=== PATIENT | female | born 1940 | race Caucasian/White ===

== ENCOUNTER 2018-01-15 11:42 | Outpatient (CLI) | payer MEDICARE | END 2018-01-15 11:43 | disposition home or self-care (01) | LOC: BICMAMMO 11:42 | PROVIDERS: ATTEND Family Medicine | DX: Z12.31 Encounter for screening mammogram for malignant neoplasm of breast (principal) | CPT/HCPCS: 77063; 77067 ==

== ENCOUNTER 2018-04-15 10:33 | Observation (INO) | payer MEDICARE ==
[2018-04-15 11:17] LABS: #Eosinphils 0.3 thou/uL (0.0-0.7); #Lymphocytes 1.1 thou/uL (1.20-3.40); #Monocytes 1.1 thou/uL (0.11-0.59); #Neutrophils 6.5 thou/uL (1.40-6.50); %Basophils 0.5 % (0.0-1.0); %Lymphocytes 12.3 % (21.0-51.0); %Monocytes 12.3 % (0.0-10.0); %Neutrophils 71.9 % (42.0-75.0); Hemoglobin 14.2 g/dL (12.0-16.0); Mean Corpuscular HGB CONC 32.8 g/dL (32.0-36.0); Mean Corpuscular Hemoglobin 29.4 pg (27.0-31.0); Mean Corpuscular Volume 89.7 fL (78.0-98.0); Mean Platelet Volume 7.7 fL (7.4-10.4); Platelet Count 220 thou/uL (130-400); RBC Distribution Width 12.5 % (11.5-14.5); Red Blood Cell (RBC) Count 4.83 mill/uL (4.20-5.40); White Blood Cell (WBC) Count 9.1 thou/uL (4.8-10.8)
[2018-04-15 11:29] LABS: ALT (SGPT) 23 U/L (8-55); AST (SGOT) 25 U/L (5-34); Albumin 4.2 g/dL (3.4-4.8); Alkaline Phosphatase 101 U/L (40-150); Anion Gap 11 mmol/L (10-20); BUN (Urea Nitrogen) 18 mg/dL (9.8-20.1); Bilirubin, Total 0.9 mg/dL (0.2-1.2); Calc. Creatinine Clearance 0 mL/min (70-130); Calcium 9.6 mg/dL (7.8-10.44); Carbon Dioxide 28 mmol/L (23-31); Chloride 108 mmol/L (98-107); Estimated GFR-MDRD 62; Globulin 3.1 g/dL (2.4-3.5); Glucose 127 mg/dL (83-110); Potassium 3.9 mmol/L (3.5-5.1); Protein, Total 7.3 g/dL (6.0-8.3); Sodium 143 mmol/L (136-145)
[2018-04-15 11:35] LABS: CKMB 0.9 ng/mL (0-6.6); Troponin I 0.011 ng/mL (< 0.028)
--- NOTE | 2018-04-15 11:51 | RAD ---
CHEST ONE VIEW: HISTORY: A 78-year-old female with a history of palpitations and fluctuating blood pressure. COMPARISON: 02/08/2016 FINDINGS: Heart size is within normal limits. Lungs are clear. No confluent pneumonia, overt edema, or pleura l effusion. IMPRESSION: 1. No acute intrathoracic disease. 2. Atherosclerosis of the aorta. 3. Improvement in the appearance of the chest when compared to the prior older study. POS: [facility]
[2018-04-15 14:40] LABS: Troponin I Less than 0.010 ng/mL (< 0.028)
[2018-04-15 14:58] VITALS: BMI 27.0
[2018-04-15] MEDS ORDERED: Acetaminophen 325 MG TAB PO PRN (17:43)
[2018-04-15] MEDS ORDERED: diphenhydrAMINE 50 MG CAP PO PRN (17:47)
[2018-04-15] MEDS ORDERED: Nitroglycerin 0.4 MG TAB (25 Tab Bottle) SL PRN (17:47)
[2018-04-15 18:23] LABS: Troponin I Less than 0.010 ng/mL (< 0.028)
[2018-04-15] MEDS ORDERED: Amlodipine 10 MG TAB PO SCH (19:45)
[2018-04-15] MEDS: Atorvastatin Calcium 20 MG TAB PO SCH (20:14)
[2018-04-15] MEDS: Ezetimibe 10 MG TAB PO SCH (20:14)
[2018-04-15] MEDS: Ibuprofen 600 MG TAB PO SCH (20:16)
[2018-04-16] MEDS: Levothyroxine Sodium 100 MCG TAB PO SCH (06:13)
[2018-04-16] MEDS: Amlodipine 10 MG TAB PO SCH (08:04)
[2018-04-16] MEDS: Metamucil PACK PO SCH (08:09)
--- NOTE | 2018-04-16 08:20 | HP ---
CHIEF COMPLAINT: Palpitations with chest pressure. HISTORY OF PRESENT ILLNESS: This patient is a 78-year-old female, who has a history of some coronary artery disease with stents, who presented via the emergency department. The patient was reporting that she has had some sensation that things were simply not right within her chest for the last couple of weeks. She reports that she has had some palpitations as well as some pressure. She denies pain specifically, but states that something just felt off. She has had no radiation of this pressure type sensation. She can only rate it at rest at a 2/10. She does report that her blood pressure has been elevated associated with these symptoms, today it was as high as 160 systolic. REVIEW OF SYSTEMS: Notable for some constipation. Otherwise, a 10-system review is negative except for those things mentioned in the history of present illness. PAST MEDICAL HISTORY: Notable for coronary artery disease with 3 prior stents in 2008, osteoarthritis, hyperlipidemia, hypertension, hypothyroidism, depression. PAST SURGICAL HISTORY: Left knee replacement, foot surgery x2, cholecystectomy , D&C. FAMILY HISTORY: Father had leukemia. Mother had type 2 diabetes mellitus. Sister with arrhythmias and melanoma. SOCIAL HISTORY: The patient has a remote history of smoking, quit over 47 years ago. Has 1-2 alcoholic beverages per month. Denies drugs. She is . She is FULL CODE and her would be her surrogate decision maker. ALLERGIES: CODEINE and JANNET'S WORT. CURRENT MEDICATIONS: Aspirin, atorvastatin, amlodipine, vitamin D3, Zetia, Synthroid and omeprazole. The patient had been on isosorbide, but is not actually taking in a number of years. PHYSICAL EXAMINATION: VITAL SIGNS: Temperature is 97.5, pulse 58, respirations 20, O2 sat 95% on room air, blood pressure was 183/87. GENERAL APPEARANCE: Age appropriate female, in no distress. She is awake, alert, oriented, very pleasant, cooperative. HEENT: PERRL. No OP lesions. NECK: Supple and symmetric. There is a subtle right-sided bruit versus transmitted murmur. LUNGS: Clear to auscultation bilaterally with good chest wall expansion and air exchange. CARDIOVASCULAR: Heart has a 2/6 murmur at the right upper sternal border. ABDOMEN: Soft, nontender, nondistended, positive bowel sounds, no masses, no organomegaly. EXTREMITIES: Warm and dry with no cyanosis, clubbing or edema. LABORATORY DATA: White count 9.1, hemoglobin 14.3, platelets 220. Sodium 143, potassium 3.9, chloride 108, CO2 is 28, BUN is 18, creatinine is 0.9, glucose 127. Troponin 0.011 with the repeat 0.010. Chest x-ray is negative. EKG without ischemic changes. IMPRESSION AND PLAN: 1. Chest pain with palpitations and dyspnea on exertion. The patient has a history of coronary artery disease. She reports that she is followed by Dr. Bay and has had some workup done there within the last year or two. I do not have those records in our system. We will keep her in observation on telemetry and continue to monitor serial cardiac isoenzymes and consult Cardiology. 2. Possible carotid bruit. Again, the patient indicates that she has had a prior ultrasound. We will await to see if that is part of the Cardiology record. 3. Hypertension. Continue with her usual home medications and provide p.r.n. as necessary. 4. Hypothyroidism. Continue with her Synthroid. Check a TSH. MTDD
[2018-04-16 09:11] LABS: ALT (SGPT) 20 U/L (8-55); AST (SGOT) 24 U/L (5-34); Albumin 3.8 g/dL (3.4-4.8); Alkaline Phosphatase 96 U/L (40-150); Anion Gap 9 mmol/L (10-20); BUN (Urea Nitrogen) 12 mg/dL (9.8-20.1); Calc. Creatinine Clearance 69 mL/min (70-130); Calcium 9.2 mg/dL (7.8-10.44); Carbon Dioxide 24 mmol/L (23-31); Chloride 107 mmol/L (98-107); Estimated GFR-MDRD 71; Globulin 2.9 g/dL (2.4-3.5); Glucose 99 mg/dL (83-110); Protein, Total 6.7 g/dL (6.0-8.3); Sodium 136 mmol/L (136-145)
[2018-04-16 09:25] LABS: #Basophils 0.1 thou/uL (0.0-0.2); #Eosinphils 0.2 thou/uL (0.0-0.7); #Lymphocytes 1.3 thou/uL (1.20-3.40); #Neutrophils 5.3 thou/uL (1.40-6.50); %Basophils 0.8 % (0.0-1.0); %Eosinophils 2.9 % (0.0-10.0); %Lymphocytes 16.2 % (21.0-51.0); %Monocytes 13.1 % (0.0-10.0); Hemoglobin 13.6 g/dL (12.0-16.0); Mean Corpuscular HGB CONC 32.1 g/dL (32.0-36.0); Mean Corpuscular Hemoglobin 29.2 pg (27.0-31.0); Mean Platelet Volume 9.4 fL (7.4-10.4); Platelet Count 185 thou/uL (130-400); RBC Distribution Width 12.5 % (11.5-14.5); Red Blood Cell (RBC) Count 4.66 mill/uL (4.20-5.40)
[2018-04-16] MEDS ORDERED: ADENOSINE 60 MG/20 ML VIAL ONE (10:23)
[2018-04-16] MEDS: Ibuprofen 600 MG TAB PO SCH ×3 (11:00→21:24)
--- NOTE | 2018-04-16 14:17 | PDOC.PN ---
- Subjective Encounter Start Date: 04/16/18 Encounter Start Time: 10:00 -: f/u on admission for chest pain -: patient denies c/o today - Objective Resuscitation Status: Resuscitation Status FULL:Full Resuscitation Vital Signs & Weight: Vital Signs (12 hours) Temp Pulse Resp BP BP Pulse Ox 04/16/18 11:35 97.8 F 60 16 177/84 H 98 04/16/18 10:11 146/62 H 04/16/18 07:28 97.9 F 63 18 193/86 H 94 L 04/16/18 04:00 97.9 F 59 L 16 171/74 H 94 L Weight Weight 73.595 kg I&O: 04/15/18 04/16/18 04/17/18 06:59 06:59 06:59 Intake Total 600 200 Balance 600 200 Result Diagrams: 04/16/18 08:24 04/16/18 08:24 Phys Exam - Physical Examination HEENT: PERRLA, moist MMs Neck: no nodes, no JVD Respiratory: clear to auscultation bilateral Cardiovascular: RRR, no significant murmur Gastrointestinal: soft, non-tender Musculoskeletal: no edema, pulses present Neurological: non-focal, normal sensation Lymphatic: no nodes Psychiatric: normal affect, A&O x 3 Skin: no rash, normal turgor Dx/Plan (1) Chest pain Code(s): R07.9 - CHEST PAIN, UNSPECIFIED Status: Acute (2) CAD (coronary artery disease) Code(s): I25.10 - ATHSCL HEART DISEASE OF [place] CORONARY ARTERY W/O ANG PCTRS Status: Chronic (3) Dyslipidemia Code(s): E78.5 - HYPERLIPIDEMIA, UNSPECIFIED Status: Chronic (4) GERD (gastroesophageal reflux disease) Code(s): K21.9 - GASTRO-ESOPHAGEAL REFLUX DISEASE WITHOUT ESOPHAGITIS Status: Chronic - Plan -: Cardiology consult- Dr. Bay ordered stress test -: Echo pending -: Will monitor, repeats labs in am * .
[2018-04-16] MEDS ORDERED: Lisinopril 10 MG TAB PO SCH (17:15)
--- NOTE | 2018-04-16 17:42 | NM ---
NUCLEAR MEDICINE CARDIAC SPECT WITH EF AND WALL MOTION: 04/16/18 HISTORY: 78-year-old female with history of chest pain, history of coronary artery disease, prior stent, hyper tension, dyslipidemia. Adenosine Sestamibi study was performed. The patient was injected with 30 millicuries technetium 99m Sestamibi intravenously for stress images and with 9 millicuries technetium 99m Sestamibi intravenously for resting images. Multiple SPECT images in the short axis, vertical long axis and horizontal long axis demonstrates no scan evidence for infarct or ischemia. TID - 1.15. LHR - 0.28. EDV - 64 mL. EF - 74%. Myocardial perfusion wall motion: Wall motion is normal. IMPRESSION: Normal cardiac SPECT stress/rest with EF and wall motion. POS: [facility]
[2018-04-16] MEDS: Ezetimibe 10 MG TAB PO SCH (21:22)
[2018-04-16] MEDS: Atorvastatin Calcium 20 MG TAB PO SCH (21:22)
--- NOTE | 2018-04-16 22:14 | CON ---
DATE OF CONSULTATION: 04/15/2018 HISTORY OF PRESENT ILLNESS: Haylee Whitley is a 78-year-old white female that I follow intermittently since 06/2012. While she was living in [place] in 2008, she had a Promus drug-eluting stents placed in the right coronary artery 3.0 x 15 mm and Promus in the LAD 2.5 x 18 and 2.5 x 8. She apparently had dyspnea on exertion as her main symptom at that time. Now, she is uncertain if she had any chest discomfort. In 02/2012, she had a negative Cardiolite in [place] and also in 07/2013, she had negative Cardiolite in my office. In 2014, she was seen for routine followup and her heart rate was 48 per minute. She is on metoprolol 25 ER daily and that was discontinued. She continued to have heart rates in the 50s. Ejection fraction has been 60%-65% in the past. In 08/2015, she had a blood pressure of 191/65, pulse 72 which was regular. Ultimately, she came to the emergency room. At the time, she would complain of chest pain at rest. She was noted during that admission to have a 2.1 second pause. She underwent Cardiolite testing, which revealed no evidence of ischemia. During that admission, amlodipine was increased from 5 mg to 10 mg daily. She was sent home with a 30-day monitor, but did not have any further palpitations. She developed a rash with the electrodes and really did not wear the monitor much. Last time, I saw her in the office was in 10/2017. At that time, her blood pressure was 126/61; however, at home, she would have systolics of 150-160 per minute. She was placed on lisinopril 10 mg daily. That does not currently listed amongst her medications at home; however, she states she is still taking it. She now is admitted with increased blood pressure at home with systolics frequently in the 170-190 range. She also has noted exertional dyspnea as well as exertional chest pressure. She had the chest pressure of 15-20 minutes as well as she is unable to get her blood pressure down. She denies any significant palpitations, although the nurses state that was one of her main complaints. Since being in the hospital, she has had no significant pauses. She occasionally has PACs. PAST MEDICAL HISTORY: Coronary artery disease with stent placement as noted above, hyperlipidemia, hypertension, difficult to control hypothyroidism, depression, and osteoarthritis. OPERATIONS: Left knee replacement, foot surgery x2, cholecystectomy, and D&C. MEDICATIONS: At home include lisinopril 10 daily (not currently noted on her home medicine record), amlodipine 10 mg daily, aspirin 81 daily, atorvastatin 20 at bedtime, Zetia 10 mg at bedtime, ibuprofen 3 tablets t.i.d., isosorbide 60 mg q.a.m., levothyroxine 100 mcg daily, nitroglycerin p.r.n., multivitamin daily, Prilosec 20 q.a.m., Metamucil daily and sertraline 150 q.a.m. ALLERGIES: CODEINE and JANNET'S WORT. SOCIAL HISTORY: Smoked in the past. She occasionally drinks. She is . FAMILY HISTORY: No immediate family history of coronary artery disease. REVIEW OF SYSTEMS: Twelve-point review of systems otherwise unremarkable. PHYSICAL EXAMINATION: VITAL SIGNS: Blood pressure 174/75, pulse 76. HEENT: PERRL. NECK: Supple. CHEST: Clear. CARDIAC: S1 and S2 are normal, without any S3, S4. She has bilateral carotid artery bruits. ABDOMEN: Normal bowel sounds without tenderness or organomegaly. EXTREMITIES: Revealed no clubbing, cyanosis or edema. NEUROLOGIC: Grossly intact. LABORATORY DATA: EKG revealed sinus bradycardia with moderate increased voltage. CBC is unremarkable. Sodium 136, potassium 4.0, chloride 107, carbon dioxide 24, BUN 12, creatinine 0.79. Cardiac enzymes are unremarkable. Adenosine Cardiolite testing revealed no evidence of ischemia or fixed defect. Echocardiogram revealed ejection fraction 60%-65%, evidence for diastolic dysfunction, moderate mitral regurgitation, aortic valvular sclerosis, mild tricuspid regurgitation, and mild pulmonic regurgitation. IMPRESSION: 1. Exertional chest pressure and shortness of breath, probably related to poorly controlled hypertension. 2. No evidence of ischemia on Cardiolite at this time. 3. History of stent placement in the right coronary artery and left anterior descending in [place] in 08/2008. 4. Hypertension, poorly controlled, some of which may be due to her anxiety. 5. History of sinus bradycardia in the past with metoprolol having been discontinued. Also in 2015, she had a 2.1 second pause on no beta tanika. 6. Hypercholesterolemia. 7. Bilateral coronary artery bruits. 8. Hypothyroidism. 9. Depression. PLAN: Ms. Whitley at home was taking the lisinopril 10 mg daily, which is not amongst her current medications. I will give her dose 10 mg this afternoon and start 20 mg q.a.m. tomorrow. Carotid Doppler will be performed. Fasting lipid profile will be performed. Once her blood pressure is better controlled and she may be discharged. AILEEN
[2018-04-17] MEDS ORDERED: hydrALAZINE 20 MG/ML VIAL SLOW IVP SCH ×2 (03:45→05:30)
[2018-04-17 04:15] LABS: #Eosinphils 0.2 thou/uL (0.0-0.7); #Lymphocytes 1.3 thou/uL (1.20-3.40); #Monocytes 1.2 thou/uL (0.11-0.59); #Neutrophils 5.4 thou/uL (1.40-6.50); %Basophils 0.5 % (0.0-1.0); %Eosinophils 2.5 % (0.0-10.0); %Lymphocytes 16.1 % (21.0-51.0); %Monocytes 14.5 % (0.0-10.0); %Neutrophils 66.3 % (42.0-75.0); Hemoglobin 14.6 g/dL (12.0-16.0); Mean Corpuscular HGB CONC 32.9 g/dL (32.0-36.0); Mean Corpuscular Hemoglobin 29.6 pg (27.0-31.0); Mean Platelet Volume 7.8 fL (7.4-10.4); Platelet Count 205 thou/uL (130-400); RBC Distribution Width 12.3 % (11.5-14.5); Red Blood Cell (RBC) Count 4.95 mill/uL (4.20-5.40); White Blood Cell (WBC) Count 8.2 thou/uL (4.8-10.8)
[2018-04-17 04:36] LABS: ALT (SGPT) 21 U/L (8-55); AST (SGOT) 23 U/L (5-34); Alkaline Phosphatase 100 U/L (40-150); Anion Gap 12 mmol/L (10-20); BUN (Urea Nitrogen) 14 mg/dL (9.8-20.1); Calc. Creatinine Clearance 58 mL/min (70-130); Calcium 9.5 mg/dL (7.8-10.44); Carbon Dioxide 26 mmol/L (23-31); Cardiac Risk 3.9 (Less than 4.5); Chloride 107 mmol/L (98-107); Cholesterol 134 mg/dl (< 200 Desired); Estimated GFR-MDRD 58; Glucose 99 mg/dL (83-110); HDL Cholesterol 34 mg/dL (>60 Neg Risk); LDL Cholesterol, Calculated 83 mg/dL; Potassium 4.1 mmol/L (3.5-5.1); Sodium 141 mmol/L (136-145); Triglycerides 83 mg/dL (Less than 150)
[2018-04-17] MEDS: Levothyroxine Sodium 100 MCG TAB PO SCH (05:53)
--- NOTE | 2018-04-17 08:24 | ULT ---
CAROTID DOPPLER ULTRASOUND: Date: 04/17/18 HISTORY: Carotid bruit. COMPARISON: None. TECHNIQUE: Real-time De Oliveira scale, color Doppler, and spectral analysis of the extracranial carotid and vertebral arteries was performed. FINDINGS: Small volume plaque both proximal internal carotid arteries. Elevated peak systolic velocity in the r ight internal carotid artery and left internal carotid artery. Antegrade flow both vertebral arteries . Right ICA/CCA ratio is 1.38. Left ICA?CCA ratio is 1.76. IMPRESSION: 50-69% stenosis of both internal carotid arteries. CT angiogram may be beneficial if clinically warra nted. CODE T. POS: [facility]
[2018-04-17] MEDS: Amlodipine 10 MG TAB PO SCH (08:49)
[2018-04-17] MEDS: Ibuprofen 600 MG TAB PO SCH ×2 (08:49→15:43)
[2018-04-17] MEDS: Metamucil PACK PO SCH (08:50)
[2018-04-17] MEDS ORDERED: Lisinopril 20 MG TAB PO SCH (09:00)
[2018-04-17 15:58] VITALS: BP 175/79; TEMP 98.8
--- NOTE | 2018-04-18 03:33 | DIS ---
DATE OF ADMISSION: 04/15/2018 DATE OF DISCHARGE: 04/17/2018 CONSULTANTS: Dr. Bay. CODE STATUS: FULL. PROCEDURES: Patient had an echocardiogram with findings of an ejection fraction is visually estimated at 60%-65%. E/A flow reversal noted suggestive of diastolic dysfunction, moderate mitral regurgitation is present. Aortic valve is sclerotic. Mild tricuspid regurgitation, mild pulmonic regurgitation is present. Patient also had a chest x-ray showed no acute intrathoracic disease showed arthrosclerosis of the aorta improvement in the appearance of the chest when compared to a prior older study. Patient also had a stress test was given adenosine study. Patient had a normal cardiac stress rest with an EF and wall motion. Patient also had a carotid Doppler study, which showed impression of 50%-69% stenosis of both internal carotid arteries. DISCHARGE DIAGNOSES: 1. Chest pain, atypical. 2. Hypertension. 3. Carotid stenosis. 4. Anxiety. 5. History of bradycardia. 6. Paroxysmal supraventricular tachycardia. 7. Hypothyroidism. 8. Dyslipidemia. REVIEW OF SYSTEMS: Patient was examined this morning. Denies any complaints, did note that she had some constipation earlier this week, but reports she had a normal bowel movement this morning. Otherwise, a 10-system review negative. PHYSICAL EXAMINATION: VITAL SIGNS: Temperature 98.4, pulse 63, respirations 22, blood pressure 175/79 , 95% on room air. GENERAL APPEARANCE: Age appropriate for female, no distress. She is alert, awake, oriented, very pleasant, cooperative. HEENT: Pupils are equal and reactive to light. Normal conjunctivae. NECK: Supple. No JVD is noted. Subtle bilateral bruits to the carotid. LUNGS: Clear to auscultation bilaterally. Good chest wall expansion and air exchange. CARDIOVASCULAR: Heart with 2/6 murmur right upper sternal border. S1, S2. ABDOMEN: Soft, nontender, nondistended. EXTREMITIES: 5/5 strength to all four extremities. No edema noted to lower extremities. HOSPITAL COURSE: Ms. Whitley is a 78-year-old female with a history of some coronary artery disease and stents reports some vague chest pain, palpitations, and some pressure. Denies any specific pain, states primarily she felt off. She denied any radiation of this pressure-type sensation. Does report that her blood pressure has been elevated with in relation to these symptoms systolic in the 160s. She was admitted to the observation unit for further management. She had Doppler, echo, stress test ordered by Dr. Bay. He consulted. He recommends an outpatient visit with Cardiology EP doctors, as she had some SVT short bursts, while she was hospitalized. We also recommend yearly carotid Doppler studies based on the findings here. She denies any dizziness or any syncopal episodes. Her lisinopril was increased to 20 mg p.o. daily, first dose of that was this morning, blood pressure improved slightly. We will continue that lisinopril as an outpatient. Dr. Bay felt comfortable with her going home today with her increase in lisinopril, would like her to follow up with the EP doctors. Her chest pain was thought to be noncardiac at this time. Discharge plan was discussed with Dr. Ellis who agreed with plan. DISCHARGE MEDICATIONS: She will continue her home medications which include aspirin 81 mg p.o. daily, Lipitor 20 mg p.o. at night, calcium carbonate and vitamin D 600-125 once a week, Benadryl 50 mg p.o. b.i.d. p.r.n., Zetia 10 mg p.o. at bedtime, ibuprofen 600 mg p.o. t.i.d., isosorbide 60 mg p.o. q.a.m., levothyroxine 100 mcg p.o. q.a.m., multivitamin 1 tab p.o. daily, nitroglycerin 0.4 mg sublingual every 5 minutes as needed for anginal chest pain, Prilosec 20 mg p.o. q.a.m., Metamucil 0.4 grams p.o. daily, sertraline 150 mg p.o. q.a.m., Norvasc 10 mg p.o. daily, lisinopril increased to 20 mg p.o. daily. ALLERGIES: CODEINE and JANNET'S WORT. CONDITION: Stable. DISCHARGE INSTRUCTIONS: The patient will be discharged to home. REFERRAL: Should see Dr. Di Lam within 1 week. Recommend an appointment with Cardiology, EP physicians the first available appointment. Follow up with Dr. Bay in the next 2-3 weeks. [facility] HOSPITALGarcia
== END 2018-04-17 18:00 | disposition home or self-care (01) ==
LOC: ERS 10:33 → 2SW 13:33
PROVIDERS: ADMIT Internal Medicine; ATTEND Internal Medicine
DX: R07.89 Other chest pain (principal); I65.29 Occlusion and stenosis of unspecified carotid artery; F41.9 Anxiety disorder, unspecified; I47.1 Supraventricular tachycardia; R06.09 Other forms of dyspnea; I08.3 Combined rheumatic disorders of mitral, aortic and tricuspid valves; M19.90 Unspecified osteoarthritis, unspecified site; E78.5 Hyperlipidemia, unspecified; I10 Essential (primary) hypertension; E03.9 Hypothyroidism, unspecified; F32.9 Major depressive disorder, single episode, unspecified; K21.9 Gastro-esophageal reflux disease without esophagitis; I25.10 Atherosclerotic heart disease of native coronary artery without angina pectoris; Z87.891 Personal history of nicotine dependence; Z79.82 Long term (current) use of aspirin; Z79.899 Other long term (current) drug therapy; Z88.5 Allergy status to narcotic agent; Z88.8 Allergy status to other drugs, medicaments and biological substances; Z95.5 Presence of coronary angioplasty implant and graft
CPT/HCPCS: 71045; 78452; 80053 ×2; 80061; 82553; 84484 ×2; 85025 ×2; 93005; 93017; 93306; 93880; 94760; 96374; 96376; 99285; A9500; G0378 ×2; 36415; 84443; J0153; J0360; J7620

== ENCOUNTER 2018-10-04 11:29 | Emergency (ER) | payer MEDICARE ==
[2018-10-04] MEDS ORDERED: Nitroglycerin 2% Ointment 1 INCH/1 GM Packet ONE (11:58)
[2018-10-04 12:20] LABS: ALT (SGPT) 23 U/L (8-55); AST (SGOT) 29 U/L (5-34); Albumin 4.2 g/dL (3.4-4.8); Alkaline Phosphatase 116 U/L (40-150); Anion Gap 15 mmol/L (10-20); BUN (Urea Nitrogen) 13 mg/dL (9.8-20.1); Bilirubin, Total 0.9 mg/dL (0.2-1.2); CK (CPK) 49 U/L (29-168); Calc. Creatinine Clearance 0 mL/min (70-130); Calcium 9.8 mg/dL (7.8-10.44); Carbon Dioxide 23 mmol/L (23-31); Chloride 108 mmol/L (98-107); Estimated GFR-MDRD 66; Globulin 3.1 g/dL (2.4-3.5); Glucose 104 mg/dL (83-110); Lipase 22 U/L (8-78); Potassium 4.5 mmol/L (3.5-5.1); Protein, Total 7.3 g/dL (6.0-8.3); Sodium 141 mmol/L (136-145)
[2018-10-04 12:23] LABS: Band 1 % (5-11); Eosinophils 5 % (0-10); Hemoglobin 14.7 g/dL (12.0-16.0); Lymphocytes 14 % (21-51); MDiff Complete? YES; Mean Corpuscular HGB CONC 33.2 g/dL (32.0-36.0); Mean Corpuscular Volume 90.2 fL (78.0-98.0); Monocytes 10 % (0-10); Neutrophil 69 % (42-75); Platelet Count 183 thou/uL (130-400); RBC Distribution Width 12.5 % (11.5-14.5); Red Blood Cell (RBC) Count 4.91 mill/uL (4.20-5.40); White Blood Cell (WBC) Count 10.2 thou/uL (4.8-10.8)
--- NOTE | 2018-10-04 12:54 | RAD ---
PORTABLE CHEST: Date: 10/04/18 HISTORY: Chest pain. COMPARISON: 04/15/18. FINDINGS: Stranding in the lung bases consistent with mild atelectasis. Relatively poor inspiration. No evidenc e of vascular congestion or edema. No significant effusion. Heart size upper normal and stable. IMPRESSION: Evidence of bibasilar atelectasis. POS: [facility]
[2018-10-04] MEDS ORDERED: Acetaminophen 500 MG TAB ONE (12:56)
== END 2018-10-04 15:10 | disposition home or self-care (01) ==
LOC: ERS 11:29
DX: R07.89 Other chest pain (principal); I25.10 Atherosclerotic heart disease of native coronary artery without angina pectoris; E78.5 Hyperlipidemia, unspecified; I10 Essential (primary) hypertension; F32.9 Major depressive disorder, single episode, unspecified; Z79.899 Other long term (current) drug therapy; Z79.82 Long term (current) use of aspirin
CPT/HCPCS: 36415; 71045; 80053; 82550; 83690; 84484; 85025; 93005; 94760

== ENCOUNTER 2018-12-03 08:18 | Outpatient (CLI) | payer MEDICARE ==
--- NOTE | 2018-12-03 10:42 | MRI ---
EXAM: Right shoulder MRI without contrast: HISTORY: Right shoulder pain, care of right biceps muscle COMPARISON: None FINDINGS: Multiplanar, multisequence MRI examination of the shoulder is performed. A C joint:Arthrosis with minimal fluid and fat stranding in the subacromial and subdeltoid bursa. Supraspinatus tendon: High-grade partial-thickness undersurface insertional tear with minimal partial undersurface retraction back to the level of the rotator cable. Infraspinatus tendon: Intact. Biceps tendon: High-grade very irregular attenuating tear at the level of the upper bicipital groove with associated medial subluxation and disruption of the biceps tendon josette complex. Subscapularis tendon: Interstitial tears. Rotator cuff muscles: Within normal limits of signal and volume. Glenoid labrum: Abnormal signal associated with the superior labrum evidence for a degenerative type SLAP tear. No evidence for acute osteochondral defect or significant abnormal marrow signal. IMPRESSION: A C joint arthrosis. High-grade partial-thickness undersurface tear of the supraspinatus tendon at the insertion. High-grade partial-thickness tear of the biceps tendon with associated disruption of the biceps tendo n josette complex along with interstitial tears of the subscapularis tendon.
== END 2018-12-03 08:19 | disposition home or self-care (01) ==
LOC: BICMRI 08:18
PROVIDERS: ATTEND Orthopaedic Surgery Hand Surgery
DX: S46.211A Strain of muscle, fascia and tendon of other parts of biceps, right arm, initial encounter (principal); M19.011 Primary osteoarthritis, right shoulder

== ENCOUNTER 2018-12-09 10:09 | Outpatient (CLI) | payer MEDICARE ==
[2018-12-09 11:48] LABS: Anion Gap 13 mmol/L (10-20); BUN (Urea Nitrogen) 14 mg/dL (9.8-20.1); Calc. Creatinine Clearance 0 mL/min (70-130); Calcium 9.6 mg/dL (7.8-10.44); Carbon Dioxide 25 mmol/L (23-31); Chloride 110 mmol/L (98-107); Estimated GFR-MDRD 55; Glucose 88 mg/dL (83-110); Potassium 3.8 mmol/L (3.5-5.1); Sodium 144 mmol/L (136-145)
[2018-12-09 12:39] LABS: Band 2 % (5-11); Eosinophils 4 % (0-10); Hemoglobin 13.9 g/dL (12.0-16.0); Lymphocytes 15 % (21-51); MDiff Complete? YES; Mean Corpuscular HGB CONC 33.5 g/dL (32.0-36.0); Mean Corpuscular Hemoglobin 29.5 pg (27.0-31.0); Mean Corpuscular Volume 88.2 fL (78.0-98.0); Mean Platelet Volume 8.3 fL (7.4-10.4); Monocytes 10 % (0-10); Neutrophil 65 % (42-75); Platelet Count 176 thou/uL (130-400); RBC Distribution Width 12.5 % (11.5-14.5); RBC Morphology Normal; Reactive Lymphocytes 4 % (0-10); Red Blood Cell (RBC) Count 4.72 mill/uL (4.20-5.40); White Blood Cell (WBC) Count 8.2 thou/uL (4.8-10.8)
[2018-12-09 16:25] LABS: Bilirubin Negative (Negative); Blood, Urine 1+ (Negative); Clarity Clear (Clear); Glucose, Urine (Dipstick) Normal (Negative); Leukocyte Negative Leu/uL (Negative); Mucous/LPF Rare LPF (<2+); Nitrite Negative (Negative); Protein, Urine (Dipstick) 50 mg/dL (Neg-Trace); Squamous Epithelial 0-3 HPF (0-3); WBC/HPF 0-3 HPF (0-3)
[2018-12-09 16:29] LABS: Bacteria/HPF None Seen HPF (None Seen)
== END 2018-12-09 10:10 | disposition home or self-care (01) ==
LOC: LABBT 10:09
PROVIDERS: ATTEND Orthopaedic Surgery Hand Surgery
DX: Z01.818 Encounter for other preprocedural examination (principal); M19.042 Primary osteoarthritis, left hand
CPT/HCPCS: 80048; 81001; 85025; 93005; 93010

== ENCOUNTER → 2018-12-15 | Day surgery (SDC) | payer MEDICARE ==
[2018-12-09 10:44] VITALS: BMI 27.1
[~2018-12-15] MED LIST: Bacitracin Zinc Ointment 30 gm TUBE ONE; Betamet Acet/Betamet Na Ph 30 MG/5 ML VIAL ONE; Bupivacaine PF 0.5% 30 ML VIAL ONE; Dexamethasone 20 MG/5 ML VIAL ONE; Famotidine/PF 20 mg/2ml Vial ONE; Fentanyl 100 MCG/2 ML VIAL ONE; Ketorolac Tromethamine 30 MG/ML VIAL ONE; Lidocaine 1% PF 5 ML VIAL ONE; Metoclopramide HCl 10 MG/2 ML VIAL ONE; Ondansetron HCl/PF 4 MG/2 ML Vial IVP PRN; Ondansetron PF 4 MG/2 ML Vial ONE; PROPOFOL 200 MG/20 ML VIAL ONE; Promethazine HCl 25 MG/ML VIAL IM PRN; Promethazine HCl 25 MG/ML VIAL SLOW IVP PRN; Thrombin 5000 UNITS/5 ML VIAL ONE; ePHEDrine 50 MG/ML VIAL ONE
--- NOTE | 2018-12-15 20:50 | RAD ---
TWO VIEWS OF THE LEFT THUMB: 12/15/18 HISTORY: Left thumb ligament reconstruction. FINDINGS/IMPRESSION: Multiple limited intraoperative fluoroscopic views of the left thumb were submitted for interpretatio n. The patient appears to have had resection of the trapezium. A K-wire spans the first and second m etacarpals. POS: [facility]
--- NOTE | 2018-12-16 11:54 | OP ---
DATE OF PROCEDURE: 12/15/2018 PREOPERATIVE DIAGNOSIS: Severe left thumb carpometacarpal joint. FINDINGS: Severe osteoarthritis with obliteration of chondral surface, 80% of the trapezium surface, and 60% of the thumb metacarpal base of the joint. PROCEDURES PERFORMED: 1. Ligament replacement and tendon position, left thumb carpometacarpal joint. 2. Flexor carpi radialis tendon transfer with harvest, left side. 3. C-arm supervision. TOURNIQUET TIME: 120 minutes. ESTIMATED BLOOD LOSS: 25 mL. ANESTHESIA: General LMA technique augmented by 30% mL and 0.5% Marcaine block without epinephrine, 20 given before the procedure, divided 15 at the primary site and 5 at the harvest sites, and then the same ratio for the last 10 at the end of procedure when the wound was closed. DESCRIPTION OF PROCEDURE: After successful LMA technique, the limb was prepped and draped. The time-out done appropriately to include the fact she had beta tanika in less than last 24 hours, and she is on beta tanika. We then outlined incision incorporated the Marcaine, and then exsanguinated the limb with an Esmarch. The tourniquet was inflated to 250 mmHg pressure. We then used a curvilinear incision through skin and subcutaneous tissue, then found a branch of superficial radial nerve as well as the terminal branches of cutaneous and dissected free from the field. At the end of the interval between the abductor pollicis longus and extensor pollicis brevis, the patient had two large sleeves of abductor pollicis longus nerve. We then the nerve, found the joint capsule, opened the dorsal radial 1/2 and then tagged it with 2-0 Vicryl on each side. We then freed the muscle fascial belly before we could see the entire carpometacarpal joint and then began our dissection. We began radially until we protected the radial artery, dissected the entire radial 1/2 and then worked our way to free the proximal portion of the scaphotrapezial joint. Once this was done, we identified the flexor carpi radialis tendon and preserved it throughout. We freed up the medial capsule as well as the trapezial trapezoid joint. We preserved the posterior capsule and the trapezia what we found is percentage of arthritis listed above. We then had a large osteophyte ridge on the base of the radial and dorsal aspect of the thumb, and a smaller one on the web space portion of the thumb base which we resected with a rongeur. At this point, we then drilled with a 2.5 drill bit beginning about 12 mm proximal to the radial base of the thumb metacarpal at approximately a 40-degree angle. This entered the junction of the chondral surface and the metaphysis. Then, we progressed to expand it with a 3.5 drill bit, then multiple gouge and curette. Once we had done this, we then used a curved Angela tendon, passed through the pole of the tendon through the tunnel. We then secured the first metacarpal at approximately 45-degree web angle to the second metacarpal, maintaining a [place]ton line, in relationship between the base of the metacarpals and each other. The wire was in excellent position clinically and radiographically. We then cut it below the skin after bending it. The tendon was now secured two times to the periosteum and fascia just proximal through the entrance on the lateral side of the thumb metacarpal, sutured through the abductor pollicis longus after going deep to it x2 with 4-0 Prolene and then sutured to itself with a heavy Prolene 4-0. We then created the anchovy type weave with the two 3-0 pulleys and replaced these in the capsule earlier, and then tied this deep in the space created by the trapeziectomy. We then covered the trapeziectomy space with capsule that had been spared when we did trapeziectomy. Tourniquet was deflated, we then obtained hemostasis. We closed the fascia until the muscle belly back to the capsule with interrupted 2-0 Vicryl [id number] pattern. Subcutaneous closure was accomplished with 3-0 nylon as well as cutaneous closure, after obtaining hemostasis we closed the donor site for the tendon with the same 3-0 nylon interrupted mattress pattern. The patient had pink digits, hemostasis, and no evidence of problematic orientation, and the C-arm was taken from the field. A bulky dressing was applied under a thumb spica splint with the splint out to the level of the tip of the nail. Job ID: [id number]
== END ==
LOC: SDC 12:49
PROVIDERS: ATTEND Orthopaedic Surgery Hand Surgery
PROC: 0LX80ZZ Transfer Left Hand Tendon, Open Approach (ICD-10-PCS; principal; 2018-12-15)
PROC: 0RQT0ZZ Repair Left Carpometacarpal Joint, Open Approach (ICD-10-PCS; 2018-12-15)
DX: M18.0 Bilateral primary osteoarthritis of first carpometacarpal joints (principal); I25.10 Atherosclerotic heart disease of native coronary artery without angina pectoris; E78.5 Hyperlipidemia, unspecified; I10 Essential (primary) hypertension; E03.9 Hypothyroidism, unspecified; F32.9 Major depressive disorder, single episode, unspecified; Z87.891 Personal history of nicotine dependence; Z79.82 Long term (current) use of aspirin; Z79.899 Other long term (current) drug therapy; Z88.5 Allergy status to narcotic agent; Z88.7 Allergy status to serum and vaccine; Z91.09 Other allergy status, other than to drugs and biological substances; Z95.5 Presence of coronary angioplasty implant and graft; Z96.652 Presence of left artificial knee joint
CPT/HCPCS: 76000; J0131; J0690; J0702; J1885; J3010; S0020; S0028

== ENCOUNTER 2019-02-04 09:48 | Outpatient (CLI) | payer MEDICARE ==
--- NOTE | 2019-02-04 10:16 | MMO ---
Bilateral MAMMO Bilat Screen [facility]. CLINICAL HISTORY: Patient is 79 years old and is seen for screening. The patient has no family history of breast cancer. The patient has no personal history of cancer. VIEWS: The views performed were: bilateral craniocaudal with tomosynthesis and bilateral mediolateral oblique with tomosynthesis. FILMS COMPARED: The present examination has been compared to prior imaging studies performed at [facility] on 12/26/2015, 01/14/2017 and 01/15/2018, and at [facility] on 07/14/2014. MAMMOGRAM FINDINGS: The breasts are heterogeneously dense, which could obscure a lesion on mammography. There are stable benign appearing calcifications seen in both breasts. There are no suspicious masses, suspicious calcifications, or new areas of architectural distortion. IMPRESSION: THERE IS NO MAMMOGRAPHIC EVIDENCE OF MALIGNANCY. A ROUTINE FOLLOW-UP MAMMOGRAM IN 1 YEAR IS RECOMMENDED. THE RESULTS OF THIS EXAM WERE SENT TO THE PATIENT. ACR BI-RADS Category 2 - Benign finding MAMMOGRAPHY NOTE: 1. A negative mammogram report should not delay a biopsy if a dominant of clinically suspicious mass is present. 2. Approximately 10% to 15% of breast cancers are not detected by mammography. 3. Adenosis and dense breasts may obscure an underlying neoplasm. Reported by: NAHOMY FLYNN MD Electonically Signed: [id number]
== END 2019-02-04 09:49 | disposition home or self-care (01) ==
LOC: BICMAMMO 09:48
PROVIDERS: ATTEND Family Medicine
DX: Z12.31 Encounter for screening mammogram for malignant neoplasm of breast (principal)
CPT/HCPCS: 77063; 77067

== ENCOUNTER 2019-03-16 14:14 | Emergency (ER) | payer MEDICARE ==
--- NOTE | 2019-03-16 14:57 | RAD ---
PORTABLE CHEST ONE VIEW: 03/16/2019 2:24 p.m. HISTORY: Chest pain. COMPARISON: 10/04/2018 FINDINGS: The heart size is normal. The aorta is tortuous. The lungs are expanded without focal areas of consol idation, pneumothoraces or pleural effusions. IMPRESSION: No acute process. POS: OFF
[2019-03-16 15:05] LABS: Hemoglobin 12.9 g/dL (12.0-16.0); Mean Corpuscular HGB CONC 33.9 g/dL (32.0-36.0); Mean Corpuscular Hemoglobin 30.1 pg (27.0-31.0); Mean Corpuscular Volume 88.6 fL (78.0-98.0); Platelet Count 170 thou/uL (130-400); RBC Distribution Width 12.3 % (11.5-14.5); Red Blood Cell (RBC) Count 4.29 mill/uL (4.20-5.40); White Blood Cell (WBC) Count 11.4 thou/uL (4.8-10.8)
[2019-03-16 15:17] LABS: Band 1 % (5-11); Eosinophils 3 % (0-10); Lymphocytes 15 % (21-51); MDiff Complete? YES; Monocytes 12 % (0-10); Neutrophil 64 % (42-75); Platelet Morphology Comment Appears Adequate; RBC Morphology Normal; Reactive Lymphocytes 5 % (0-10)
[2019-03-16] MEDS ORDERED: Aspirin Chewable 81 MG TAB ONE ×2 (15:20→15:21)
[2019-03-16 15:26] LABS: ALT (SGPT) 23 U/L (8-55); AST (SGOT) 23 U/L (5-34); Albumin 3.9 g/dL (3.4-4.8); Alkaline Phosphatase 88 U/L (40-110); Anion Gap 12 mmol/L (10-20); BUN (Urea Nitrogen) 18 mg/dL (9.8-20.1); Bilirubin, Total 0.8 mg/dL (0.2-1.2); Calc. Creatinine Clearance 0 mL/min (70-130); Calcium 9.1 mg/dL (7.8-10.44); Carbon Dioxide 25 mmol/L (23-31); Chloride 108 mmol/L (98-107); Estimated GFR-MDRD 63; Globulin 2.5 g/dL (2.4-3.5); Glucose 98 mg/dL (83-110); Potassium 3.8 mmol/L (3.5-5.1); Protein, Total 6.4 g/dL (6.0-8.3); Sodium 141 mmol/L (136-145)
[2019-03-16 18:03] LABS: Troponin I 0.014 ng/mL (< 0.028)
== END 2019-03-16 18:33 | disposition home or self-care (01) ==
LOC: ERS 14:14
DX: R07.89 Other chest pain (principal); R00.1 Bradycardia, unspecified; I25.10 Atherosclerotic heart disease of native coronary artery without angina pectoris; E78.5 Hyperlipidemia, unspecified; E78.00 Pure hypercholesterolemia, unspecified; I10 Essential (primary) hypertension; F32.9 Major depressive disorder, single episode, unspecified; Z79.899 Other long term (current) drug therapy; Z79.82 Long term (current) use of aspirin
CPT/HCPCS: 36415; 71045; 80053; 83880; 84484; 85025; 93005

== ENCOUNTER 2019-03-20 10:07 | Inpatient (IN) | payer MEDICARE ==
[2019-03-20] MEDS ORDERED: Nitroglycerin 2% Ointment 1 INCH/1 GM Packet ONE (10:40)
--- NOTE | 2019-03-20 10:58 | RAD ---
Chest one view HISTORY: Hypertension. Bradycardia. COMPARISON: 03/16/2019. FINDINGS: Cardiac silhouette is magnified by projection. Patient is rotated rightward. Calcification in the aorta. Subtle parenchymal opacity projects over the lingula and partially obscures the left cardiac margin. No lobar consolidation or evidence of pneumothorax. IMPRESSION: Mild infiltrate/atelectasis of the lingula.
[2019-03-20 11:27] LABS: #Eosinphils 0.2 thou/uL (0.0-0.7); #Lymphocytes 1.4 thou/uL (1.20-3.40); #Monocytes 1.2 thou/uL (0.11-0.59); #Neutrophils 7.5 thou/uL (1.40-6.50); %Basophils 0.2 % (0.0-1.0); %Eosinophils 1.8 % (0.0-10.0); %Lymphocytes 13.6 % (21.0-51.0); %Monocytes 11.8 % (0.0-10.0); %Neutrophils 72.6 % (42.0-75.0); Hemoglobin 13.4 g/dL (12.0-16.0); Mean Corpuscular HGB CONC 33.7 g/dL (32.0-36.0); Mean Corpuscular Hemoglobin 30.1 pg (27.0-31.0); Mean Corpuscular Volume 89.3 fL (78.0-98.0); Platelet Count 159 thou/uL (130-400); RBC Distribution Width 12.4 % (11.5-14.5); Red Blood Cell (RBC) Count 4.44 mill/uL (4.20-5.40); White Blood Cell (WBC) Count 10.3 thou/uL (4.8-10.8)
[2019-03-20 11:47] LABS: ALT (SGPT) 27 U/L (8-55); AST (SGOT) 23 U/L (5-34); Albumin 3.8 g/dL (3.4-4.8); Alkaline Phosphatase 93 U/L (40-110); Anion Gap 11 mmol/L (10-20); BUN (Urea Nitrogen) 17 mg/dL (9.8-20.1); Bilirubin, Total 0.9 mg/dL (0.2-1.2); Calc. Creatinine Clearance 0 mL/min (70-130); Calcium 8.9 mg/dL (7.8-10.44); Carbon Dioxide 25 mmol/L (23-31); Chloride 110 mmol/L (98-107); Estimated GFR-MDRD 70; Globulin 2.3 g/dL (2.4-3.5); Glucose 159 mg/dL (83-110); Potassium 3.6 mmol/L (3.5-5.1); Protein, Total 6.1 g/dL (6.0-8.3); Sodium 142 mmol/L (136-145)
[2019-03-20 12:16] LABS: CKMB 0.8 ng/mL (0-6.6)
[2019-03-20 15:25] VITALS: BMI 24.3
[2019-03-20] MEDS ORDERED: Acetaminophen 325 MG TAB PO PRN (15:38)
[2019-03-20] MEDS ORDERED: Senokot S 8.6-50 MG TAB PO PRN (15:38)
[2019-03-20] MEDS ORDERED: MAG PO PRN (18:31)
[2019-03-20] MEDS ORDERED: [UNRECOGNIZED DRUG - OTHER] PO PRN (18:31)
[2019-03-20] MEDS ORDERED: B6 PO PRN (18:31)
[2019-03-20] MEDS ORDERED: MELATON PO PRN (18:31)
[2019-03-20 19:24] LABS: Troponin I 0.037 ng/mL (< 0.028)
[2019-03-20] MEDS: Atorvastatin Calcium 40 MG TAB PO SCH (19:53)
[2019-03-20] MEDS: Famotidine 20 MG TAB PO SCH (19:53)
[2019-03-20] MEDS: Ezetimibe 10 MG TAB PO SCH (19:53)
--- NOTE | 2019-03-20 20:08 | HP ---
PRIMARY CARE PHYSICIAN: Di Lam MD CHIEF COMPLAINT: Hypertension and bradycardia. HISTORY OF PRESENT ILLNESS: The patient is a very pleasant 79-year-old female, who came to the emergency room today complaining of hypertension and bradycardia since yesterday. Reports that her heart rate was in the 30s, yesterday 47 in the emergency room. Current blood pressure 178/77. The patient reports chest tightness and palpitations. Reports that her blood pressure has been very labile. Her metoprolol was recently increased from 12.5 mg to 25 mg 2 weeks ago and she had a followup appointment with Dr. Bay Friday. The patient admitted to the observation unit for further management of Cardiology consult. REVIEW OF SYSTEMS: Reports chest pain, palpitations, hypertension, bradycardia, reports that she gets short of breath more easily than she has in the past, dyspnea on exertion. Denies any fever, chills, abdominal pain, nausea, vomiting, or diarrhea. All systems reviewed and negative unless mentioned in HPI. PAST MEDICAL HISTORY: Coronary artery disease, has three stents; osteoarthritis; hyperlipidemia; hypertension; chronic constipation. PAST SURGICAL HISTORY: Left knee replacement, right foot surgery x2, left foot surgery x1, cholecystectomy, D and C, had some oral surgery. PSYCH HISTORY: Has a history of depression. SOCIAL HISTORY: Lives at home with her family. Drinks socially. Denies any drug use. No smoking history. ALLERGIES: PNEUMOCOCCAL VACCINE, CODEINE, AND JANNET'S WORT. HOME MEDICATIONS: 1. Norvasc 5 mg p.o. daily. 2. Aspirin 81 mg p.o. daily. 3. Lipitor 80 mg p.o. at bedtime. 4. Clonidine 0.1 mg q.6 hours. 5. Benadryl 50 mg p.o. b.i.d. p.r.n. 6. Zetia 10 mg p.o. at bedtime. 7. Ibuprofen 600 mg p.o. t.i.d. p.r.n. 8. Imdur 60 mg p.o. q.a.m. 9. Levothyroxine 88 mcg p.o. q.a.m. 10. Multivitamin with melatonin one capsule p.o. at bedtime p.r.n. 11. Lopressor 25 mg p.o. daily. 12. Nitroglycerin 0.4 mg sublingual q.5 minutes p.r.n. 13. Prilosec 20 mg p.o. q.a.m. 14. Sertraline 50 mg p.o. q.a.m. PHYSICAL EXAMINATION: VITAL SIGNS: Blood pressure 131/62, pulse is 45, respirations are 17, temperature is 98.3, and pO2 sats are 96% on room air. CONSTITUTIONAL: The patient appears nontoxic. She is in no apparent distress. She is alert and oriented to person, place, and time. HEENT: Head is atraumatic and normocephalic. Eyes; eyelids are normal to inspection. Pupils equal, round, and reactive to light. ENT, mouth exam is normal. Mucous membranes are moist. NECK: Normal range of motion. Trachea is midline. RESPIRATORY/CHEST: Breath sounds are clear. Chest movement is symmetrical. CARDIOVASCULAR: Bradycardic. Heart sounds are normal. ABDOMEN: Nontender. Bowel sounds are heard. BACK: Normal range of motion. No tenderness. EXTREMITIES: Upper extremities normal inspection. Normal range of motion. Radial pulses are equal bilaterally. Lower extremity, normal inspection. Normal range of motion. Pedal pulses are equal. There is no edema noted. NEURO: The patient is oriented to person, place, and time. Speech is normal. SKIN: Warm, dry, normal in color. PSYCH: Normal affect. EKG, sinus ghazal, beats per minute 46. ST segments are normal. T-waves normal. [place] is normal. Left ventricular hypertrophy. PLAN AND ASSESSMENT: 1. Bradycardia. We will hold beta blockers for now and ask Cardiology to consult. Place the patient on monitor. Trend troponins. 2. Hypertension. See #1. 3. Hyperlipidemia. Restart home medications. 4. Hypothyroidism. We will restart home medications. 5. History of depression. We will start her sertraline. 6. Deep venous thrombosis and gastrointestinal prophylaxis started. Case was discussed with Dr. Marte, who agrees with plan. Hospital course is dependent on clinical findings. Job ID: [id number]
[2019-03-20 22:51] LABS: Troponin I 0.036 ng/mL (< 0.028)
[2019-03-21] MEDS ORDERED: hydrALAZINE 20 MG/ML VIAL SLOW IVP SCH (04:00)
[2019-03-21] MEDS: Levothyroxine Sodium 88 MCG TAB PO SCH (04:31)
[2019-03-21 05:52] LABS: #Basophils 0.1 thou/uL (0.0-0.2); #Eosinphils 0.2 thou/uL (0.0-0.7); #Lymphocytes 1.9 thou/uL (1.20-3.40); #Monocytes 1.6 thou/uL (0.11-0.59); #Neutrophils 7.6 thou/uL (1.40-6.50); %Basophils 0.8 % (0.0-1.0); %Eosinophils 1.4 % (0.0-10.0); %Lymphocytes 16.8 % (21.0-51.0); %Monocytes 14.2 % (0.0-10.0); %Neutrophils 66.8 % (42.0-75.0); Hemoglobin 15.5 g/dL (12.0-16.0); Mean Corpuscular Hemoglobin 30.1 pg (27.0-31.0); Mean Corpuscular Volume 88.6 fL (78.0-98.0); Mean Platelet Volume 8.2 fL (7.4-10.4); Platelet Count 187 thou/uL (130-400); RBC Distribution Width 12.5 % (11.5-14.5); Red Blood Cell (RBC) Count 5.14 mill/uL (4.20-5.40); White Blood Cell (WBC) Count 11.4 thou/uL (4.8-10.8)
[2019-03-21 06:21] LABS: Anion Gap 12 mmol/L (10-20); BUN (Urea Nitrogen) 14 mg/dL (9.8-20.1); Calc. Creatinine Clearance 58 mL/min (70-130); Calcium 10.1 mg/dL (7.8-10.44); Carbon Dioxide 26 mmol/L (23-31); Chloride 107 mmol/L (98-107); Estimated GFR-MDRD 66; Glucose 93 mg/dL (83-110); Potassium 3.8 mmol/L (3.5-5.1); Sodium 141 mmol/L (136-145)
[2019-03-21] MEDS: Famotidine 20 MG TAB PO SCH ×2 (10:45→20:21)
[2019-03-21] MEDS: Aspirin Chewable 81 MG TAB PO SCH (10:45)
[2019-03-21] MEDS: Enoxaparin Sodium 40 MG/0.4 ML SYRINGE SC SCH (10:46)
[2019-03-21] MEDS ORDERED: Amlodipine 10 MG TAB PO SCH (12:45)
[2019-03-21] MEDS ORDERED: Nitroglycerin 2% Ointment 1 INCH/1 GM Packet TOP STA (12:48)
--- NOTE | 2019-03-21 13:48 | CON ---
DATE OF CONSULTATION: PRIMARY TELEPHONE EXCHANGE OPERATOR: Carmine Bay MD REASON FOR CONSULTATION: Bradycardia, chest pressure, coronary artery disease. HISTORY OF PRESENT ILLNESS: Ms. Whitley is a very pleasant 79-year-old patient of Dr. Carmine Bay. She has had admissions in the past for chest pressure associated with hypertension. The patient recently was seen in the office and her medicine was adjusted, but she is continuing to have hypertension and also some low heart rate. She noticed her heart rate were in the mid 40s. She came to the hospital yesterday complaining of tightness in her chest. Heart rate was in the mid 40s and also hypertensive. The patient states overnight she felt like she had trouble getting a good deep breath and also the blood pressure is still elevated and the heart rate is still in the mid 40s. MEDICATIONS: Prior to admission, 1. Atorvastatin 80 mg a day. 2. Isosorbide 60 mg a day. 3. Zetia 10 mg a day. 4. Metoprolol 25 mg a day. This is tartrate, but I think she may have been taking succinate at home. 5. Amlodipine 5 mg a day. 6. Aspirin 81 mg a day. 7. Levothyroxine. ALLERGIES: TO PNEUMOCOCCAL VACCINE AND CODEINE. REVIEW OF SYSTEMS: CONSTITUTIONAL: Positive for some weakness with heart rate gets low. VISION: No changes. HEARING: No changes. PULMONARY: No cough or wheezing. GASTROINTESTINAL: No nausea, vomiting, or diarrhea. SKIN: No rashes. NEUROLOGIC: No unilateral weakness or numbness. PSYCHIATRIC: No unusual depression or anxiety. HEMATOLOGIC: No unusual bruising. GENITOURINARY: No burning with urination. Reviewing the records, the patient has had previous stent implantation done in [place] many years ago. The patient has undergone stress testing in the past, also unremarkable. PHYSICAL EXAMINATION: VITAL SIGNS: The blood pressure is 150/70, pulse 44. Earlier this morning, the blood pressure is 180/70. HEENT: Eyes, sclerae nonicteric. Mouth, mucous membranes moist. NECK: Supple. No lymphadenopathy. LUNGS: Clear. No wheezing. CARDIAC: Normal S1, normal S2. There is a soft 2/6 mid systolic murmur. No diastolic murmur. No S3. ABDOMEN: Soft, nontender. EXTREMITIES: Warm and dry. No clubbing or cyanosis. No edema. Peripheral pulses are present. PERTINENT LABORATORY DATA: Troponin of 0.042. IMAGING STUDIES: The patient has had a Cardiolite stress testing done in April 2008, which did not show ischemia. The EKGs here have shown sinus bradycardia. The patient has had stents placed in 2008. In the LAD, there are 2.5 x 18, 2.5 x 8 and the right coronary 3.0 x 15 PROMUS stents. In the past, it is thought that this hypertension is precipitating the angina. ASSESSMENT: 1. Coronary artery disease. 2. Previous stent implantation. 3. Hypertension. 4. Bradycardia. PLAN: 1. Beta-tanika has been discontinued. 2. Increase amlodipine. 3. Increase nitrates for now. 4. Dr. Bay to return tomorrow. The patient still has chest pressure intermittently at rest, should not be discharged home. This may represent angina at rest, unstable angina. Job ID: [id number]
--- NOTE | 2019-03-21 17:47 | PRG ---
DATE OF SERVICE: 03/21/2019 SUBJECTIVE: The patient is seen and examined at the bedside. She is feeling significantly better. Her chest pressure significantly improved. She does not need any oxygen any more. She was able to walk in the hallway today. Her appetite is fair. OBJECTIVE: VITAL SIGNS: Blood pressure is 147/63, pulse is 49, temperature is 97.9, respirations 16, O2 saturation is 93% on room air. HEENT: Head is atraumatic and normocephalic. Eyes are PERRLA. Sclerae are nonicteric. Oral mucosa is moist. NECK: Supple. LUNGS: Clear. HEART: S1, S2. Martínez. No S3. No S4. ABDOMEN: Soft, nontender, and nondistended. EXTREMITIES: No clubbing, cyanosis, or edema. NEUROLOGIC: She is alert and oriented x4. LABORATORY DATA: Labs showed a normal CBC, mildly elevated white count of 11.4. Normal chemistry. Troponins are 0.037 and 0.036. IMPRESSION: 1. Chest pain, improved. The patient was seen by gas engineer, Dr. Bautista, who recommends to discontinue beta tanika and increase amlodipine dose and increase nitrates. 2. Coronary artery disease, status post stenting. 3. Hypertension. 4. Bradycardia. 5. Hypothyroidism. 6. History of depression. She should be able to go home in the next 24 hours. Job ID: [id number]
[2019-03-21] MEDS: Atorvastatin Calcium 40 MG TAB PO SCH (20:20)
[2019-03-21] MEDS: Ezetimibe 10 MG TAB PO SCH (20:20)
[2019-03-22] MEDS: Levothyroxine Sodium 88 MCG TAB PO SCH (06:31)
[2019-03-22] MEDS: Aspirin Chewable 81 MG TAB PO SCH (07:52)
[2019-03-22] MEDS: Amlodipine 10 MG TAB PO SCH (07:52)
[2019-03-22] MEDS: Enoxaparin Sodium 40 MG/0.4 ML SYRINGE SC SCH (07:53)
[2019-03-22] MEDS: Famotidine 20 MG TAB PO SCH ×2 (07:53→20:22)
[2019-03-22] MEDS ORDERED: Losartan 25 MG TAB PO SCH (10:30)
[2019-03-22] MEDS ORDERED: Lisinopril 20 MG TAB PO SCH (11:00)
--- NOTE | 2019-03-22 12:22 | PRG ---
DATE OF SERVICE: 03/22/2019 SUBJECTIVE: The patient is seen and examined at the bedside. She is feeling significantly better. She does not have any chest pain anymore. Her blood pressure was elevated this morning. OBJECTIVE: VITAL SIGNS: Blood pressure is 187/78, pulse is 54, temperature is 97.5, respiratory rate is 16, O2 saturation is 96% on room air. HEENT: Head is atraumatic and normocephalic. Eyes are PERRLA. Sclerae are nonicteric. Oral mucosa is moist. NECK: Supple. LUNGS: Clear. HEART: S1 and S2 normal. No S3. No S4. ABDOMEN: Soft, nontender. EXTREMITIES: No clubbing, cyanosis, or edema. NEUROLOGIC: She is alert and oriented x4. There are no any motor or sensory deficits. LABORATORY DATA: None today. IMPRESSION: 1. Chest pain, resolved. 2. Coronary artery disease, status post stenting. 3. Hypertensive urgency. 4. Bradycardia. 5. Hypothyroidism. 6. History of depression. DISCUSSION: The patient's blood pressure is treated with lisinopril 20 mg twice a day by Dr. Bay, who took over a cardiology service care. We will continue her amlodipine 10 mg once a day. We will continue her beta-tanika holding since she is still bradycardic and we will continue her thyroid replacement. We will continue DVT prophylaxis, so the patient is not going home today because of her blood pressure issue. She will stay additional 24 hours to get the blood pressure under better control. Job ID: [id number]
[2019-03-22] MEDS: Atorvastatin Calcium 40 MG TAB PO SCH (20:21)
[2019-03-22] MEDS: Lisinopril 20 MG TAB PO SCH (20:22)
[2019-03-22] MEDS: Ezetimibe 10 MG TAB PO SCH (20:22)
[2019-03-23] MEDS ORDERED: hydrALAZINE 20 MG/ML VIAL SLOW IVP PRN (01:12)
[2019-03-23] MEDS: Levothyroxine Sodium 88 MCG TAB PO SCH (06:35)
[2019-03-23] MEDS: Amlodipine 10 MG TAB PO SCH (08:05)
--- NOTE | 2019-03-23 11:10 | NM ---
Radionucleotide stress and rest myocardial perfusion scan with CT attenuation correction and SPECT im aging HISTORY: Chest pain. FINDINGS: Lexiscan protocol. There is homogeneous uptake of radiotracer throughout the left ventricul ar myocardium. No focal perfusion defect or reversibility. QGS analysis of gated SPECT images shows no focal wall motion abnormalities. Ejection fraction calcul ated at 70%. IMPRESSION: Normal myocardial perfusion scan. Normal LVEF.
--- NOTE | 2019-03-23 11:52 | PDOC.HOSPP ---
- Subjective Encounter Date: 03/23/19 Encounter Time: 09:00 Subjective: Patient seen and examined. No new complaints. No overnight events - Objective Vital Signs & Weight: Vital Signs (12 hours) Temp Pulse Resp BP Pulse Ox 03/23/19 11:22 97.4 F L 61 18 188/81 H 96 03/23/19 07:56 97.8 F 64 16 175/84 H 96 03/23/19 06:35 74 134/67 03/23/19 03:36 97.7 F 62 18 184/75 H 95 03/23/19 02:01 55 L 03/23/19 02:00 201/83 H Weight Weight 146 lb 3.2 oz I&O: 03/22/19 03/23/19 03/24/19 06:59 06:59 06:59 Intake Total 1300 50 Output Total 950 Balance 350 50 Result Diagrams: 03/21/19 05:23 03/21/19 05:23 EKG Reviewed by me: Yes Hospitalist ROS - Review of Systems ENT: denies: ear pain, ear discharge, nose pain, nose discharge, nose congestion , mouth pain, mouth swelling, throat pain, throat swelling, other Respiratory: denies: cough, dry, shortness of breath, hemoptysis, SOB with excertion, pleuritic pain, sputum, wheezing, other Cardiovascular: denies: chest pain, palpitations, orthopnea, paroxysmal noc. dyspnea, edema, light headedness, other Gastrointestinal: denies: nausea, vomiting, abdominal pain, diarrhea, constipation, melena, hematochezia, other Genitourinary: denies: dysuria, frequency, incontinence, hematuria, retention, other Musculoskeletal: denies: neck pain, shoulder pain, arm pain, back pain, hand pain, leg pain, foot pain, other Skin: denies: rash, lesions, guillaume, bruising, other - Medication Medications: Active Medications Generic Name Dose Route Start Last Admin Trade Name Freq PRN Reason Stop Dose Admin Acetaminophen 650 mg 03/20/19 15:38 03/21/19 04:31 Tylenol PO 650 mg Q4H PRN Administration Headache/Fever/Mild Pain (1-3) Amlodipine Besylate 10 mg 03/22/19 09:00 03/23/19 08:05 Norvasc PO 10 mg DAILY MAEVE Administration Aspirin 81 mg 03/21/19 09:00 03/22/19 07:52 Aspirin Chewable PO 81 mg DAILY MAEVE Administration Atorvastatin Calcium 80 mg 03/20/19 21:00 03/22/19 20:21 Lipitor PO 80 mg HS MAEVE Administration Ezetimibe 10 mg 03/20/19 21:00 03/22/19 20:22 Zetia PO 10 mg HS MAEVE Administration Enoxaparin Sodium 40 mg 03/21/19 09:00 03/22/19 07:53 Lovenox SC 40 mg 0900 MAEVE Administration Famotidine 20 mg 03/20/19 21:00 03/22/19 20:22 Pepcid PO 20 mg BID MAEVE Administration Hydralazine HCl 10 mg 03/23/19 01:12 03/23/19 02:01 Apresoline SLOW IVP 10 mg Q4H PRN Administration BP > 180/90 Isosorbide Mononitrate 60 mg 03/21/19 09:00 03/22/19 07:53 Imdur PO 60 mg QAM MAEVE Administration Levothyroxine Sodium 88 mcg 03/21/19 06:00 03/23/19 06:35 Synthroid PO 88 mcg 0600 [facility] Administration Lisinopril 20 mg 03/22/19 21:00 03/22/19 20:22 Zestril PO 20 mg BID MAEVE Administration Sertraline HCl 50 mg 03/21/19 09:00 03/22/19 07:52 Zoloft PO 50 mg QAM MAEVE Administration - Exam General Appearance: NAD, awake alert Eye: PERRL, anicteric sclera ENT: normocephalic atraumatic, no oropharyngeal lesions Neck: supple, symmetric, no JVD, no thyromegaly Heart: RRR, no murmur, no gallops, no rubs, normal peripheral pulses Respiratory: CTAB, no wheezes, no rales, no ronchi Gastrointestinal: soft, non-tender, non-distended, normal bowel sounds Extremities: no cyanosis, no clubbing, no edema Skin: normal turgor, no lesions Neurological: cranial nerve grossly intact, normal sensation to touch Musculoskeletal: normal tone, normal strength Psychiatric: normal affect, normal behavior Hosp A/P (1) Chest pain Code(s): R07.9 - CHEST PAIN, UNSPECIFIED Status: Acute (2) Anxiety and depression Code(s): F41.9 - ANXIETY DISORDER, UNSPECIFIED; F32.9 - MAJOR DEPRESSIVE DISORDER, SINGLE EPISODE, UNSPECIFIED Status: Chronic (3) CAD (coronary artery disease) Code(s): I25.10 - ATHSCL HEART DISEASE OF [place] CORONARY ARTERY W/O ANG PCTRS Status: Chronic (4) Dyslipidemia Code(s): E78.5 - HYPERLIPIDEMIA, UNSPECIFIED Status: Chronic (5) GERD (gastroesophageal reflux disease) Code(s): K21.9 - GASTRO-ESOPHAGEAL REFLUX DISEASE WITHOUT ESOPHAGITIS Status: Chronic (6) HTN (hypertension) Code(s): I10 - ESSENTIAL (PRIMARY) HYPERTENSION Status: Chronic (7) Hypothyroid Code(s): E03.9 - HYPOTHYROIDISM, UNSPECIFIED Status: Chronic - Plan old records reviewed/req medication reviewed as above symptomatic treatment will DC if cardiology ok stress test negative
[2019-03-23] MEDS: Enoxaparin Sodium 40 MG/0.4 ML SYRINGE SC SCH (12:09)
[2019-03-23] MEDS: Famotidine 20 MG TAB PO SCH (12:09)
[2019-03-23] MEDS: Aspirin Chewable 81 MG TAB PO SCH (12:10)
[2019-03-23] MEDS: Lisinopril 20 MG TAB PO SCH (12:11)
--- NOTE | 2019-03-23 13:20 | DIS ---
DATE OF ADMISSION: 03/20/2019 DATE OF DISCHARGE: 03/23/2019 PRIMARY CARE PHYSICIAN: Dr. Di Lam. DISCHARGE DISPOSITION: Home. PRIMARY DISCHARGE DIAGNOSES: Chest pain, ruled out acute coronary syndrome and bradycardia due to medication. SECONDARY DISCHARGE DIAGNOSES: Hypothyroidism, hypertension, gastroesophageal reflux disease, osteoarthritis, history of carotid stenosis, coronary artery disease, anxiety and depression. PRIMARY PROCEDURE/OPERATION: None. RADIOLOGICAL INVESTIGATION: Chest x-ray normal. Echocardiography showed EF 60% to 65%, diastolic dysfunction. Stress test negative. SIGNIFICANT LABORATORY DATA: WBC 11.4, hemoglobin 15.5, platelet 187. Sodium 141, creatinine 0.83. Troponin 0.036. BNP 141.2. DISCHARGE MEDICATIONS: 1. Nitroglycerin 0.4 mg sublingual p.r.n. for chest pain. 2. Aspirin 81 mg daily. 3. Lipitor 80 mg p.o. at bedtime. 4. Clonidine 0.1 mg q.6 hourly p.r.n. 5. Benadryl 50 mg b.i.d. p.r.n. 6. Zetia 10 mg p.o. at bedtime. 7. Imdur 60 mg daily. 8. Synthroid 88 mcg p.o. daily. 9. Omeprazole 20 mg daily. 10. Zoloft 50 mg daily. 11. Amlodipine 10 mg p.o. daily. 12. Lisinopril 20 mg p.o. b.i.d. CONTRAINDICATION: None. CODE STATUS: Full code. INPATIENT FILTRATION OPERATOR: Dr. Bautista and Cardiology group was following while in hospital. TEST RESULT PENDING ON DISCHARGE: None. ALLERGIES: PNEUMOCOCCAL VACCINE, CODEINE, AND JANNET'S WORT. DISCHARGE PLAN: Posthospital, the patient will follow up with primary care physician in 1 week. HOSPITAL COURSE: A 79-year-old female, who was admitted by Naz De La O. Please see her H and P for further details. The patient was admitted for uncontrolled hypertension and bradycardia. The patient was taking beta tanika, and that is why beta tanika was discontinued during this admission. The patient had elevated troponin, which was indeterminate range. Cardiology was following while in hospital and Cardiology ordered a stress test that came back negative. Blood pressure medication was increased, amlodipine to 10 mg daily and lisinopril was added. Beta tanika was discontinued because of bradycardia. The patient is currently asymptomatic. If Cardiology is okay, then we will consider discharging her home later on today. The patient is seen and examined at bedside today. Please see my progress note from today for further detail. Job ID: [id number]
[2019-03-23 15:28] VITALS: BP 118/59; TEMP 97.7
== END 2019-03-23 17:15 | disposition home or self-care (01) | DRG 305 ==
LOC: ERS 10:07 → 2SW 14:20 → OBSVTOIN 14:20 → 2NO 03-23 00:19
PROVIDERS: ADMIT Internal Medicine; ATTEND Internal Medicine
DX: I16.0 Hypertensive urgency (principal); R00.1 Bradycardia, unspecified; I10 Essential (primary) hypertension; I25.10 Atherosclerotic heart disease of native coronary artery without angina pectoris; M19.90 Unspecified osteoarthritis, unspecified site; E78.5 Hyperlipidemia, unspecified; E78.00 Pure hypercholesterolemia, unspecified; K59.09 Other constipation; F32.9 Major depressive disorder, single episode, unspecified; E03.9 Hypothyroidism, unspecified; F41.9 Anxiety disorder, unspecified; K21.9 Gastro-esophageal reflux disease without esophagitis; T44.7X5A Adverse effect of beta-adrenoreceptor antagonists, initial encounter; Z96.652 Presence of left artificial knee joint; Z88.8 Allergy status to other drugs, medicaments and biological substances; Z90.49 Acquired absence of other specified parts of digestive tract; Z95.5 Presence of coronary angioplasty implant and graft; Z88.5 Allergy status to narcotic agent; Z88.7 Allergy status to serum and vaccine; Z79.899 Other long term (current) drug therapy; Z79.82 Long term (current) use of aspirin; Z79.890 Hormone replacement therapy
CPT/HCPCS: 36415; 71045; 78452; 80048; 80053; 82553; 83880; 84484; 85025; 93005; 93017; 93306; A9500; J0360; J1650

== ENCOUNTER 2019-05-31 15:07 | Outpatient (CLI) | payer MEDICARE ==
--- NOTE | 2019-05-31 16:41 | CT ---
CT RIGHT WRIST WITHOUT CONTRAST: History: Pain. Fall. Evaluate for healing. S52.514A nondisplaced fracture of right radial styloid process, initial encounter for closed fracture . Comparison: None. FINDINGS: Mild positive ulnar variance. Moderate degenerative change in the distal radial ulnar joint. A small ossification along the dorsal distal radial ulnar ligament either an ossicle or from prior injury. No evidence for an acute fracture of the distal ulna nor the distal radius. Moderate degenerative disease of the scaphotrapezium trapezoidal joints with narrowing sclerosis and cystic formation. There is also moderate degenerative disease of the thumb carpal metacarpal joint. Hook of the hamate and tubercle of the trapezium are intact. IMPRESSION: 1. No evidence for an acute nor healing radial styloid fracture. 2. Ossicle dorsal aspect of the distal radial either congenital accessory ossicle vs ossification of the dorsal distal radial ulnar ligament from prior injury. 3. Moderate degenerative disease of the scaphoid trapezium trapezoidal joint as well as the thumb car pal metacarpal joint. 4. Mild to moderate degenerative disease distal radial ulnar joint. POS: [facility]
== END 2019-05-31 15:08 | disposition home or self-care (01) ==
LOC: BICCT 15:07
PROVIDERS: ATTEND Orthopaedic Surgery Hand Surgery
DX: S52.514D Nondisplaced fracture of right radial styloid process, subsequent encounter for closed fracture with routine healing (principal)

== ENCOUNTER 2019-10-07 13:42 | Outpatient (CLI) | payer MEDICARE, OTHER ==
--- NOTE | 2019-10-07 15:41 | MRI ---
MRI OF THE RIGHT FOOT PERFORMED WITHOUT CONTRAST ENHANCEMENT: 10/07/19 HISTORY: Patient complains of pain and swelling of the right forefoot region for two weeks. History of foot soto rgery in 1997. 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 Postoperative change with plate and screws at the first metatarsophalangeal joint level are noted. Th e marrow signal change within the metatarsals and phalanges are normal. There is some lack of fat sup pression artifact related to plate and screws at the level of the second metatarsal head; however, th e metatarsal head is normal in shape and appearance and there is no signs for any stress reaction or fracture. IMPRESSION: Postop changes of the great toe. Mild edema changes on the dorsum of the foot. No signs of any absces s collection. No evidence for avascular necrosis of the second metatarsal. POS: [facility]
== END 2019-10-07 13:43 | disposition home or self-care (01) ==
LOC: BICMRI 13:42
PROVIDERS: ATTEND Orthopaedic Surgery Hand Surgery
DX: M87.00 Idiopathic aseptic necrosis of unspecified bone (principal); Z98.890 Other specified postprocedural states

== ENCOUNTER 2019-11-04 07:03 | Outpatient (CLI) | payer MEDICARE, OTHER ==
[2019-11-04 14:51] LABS: Bilirubin Small (Negative); Clarity Clear (Clear); Glucose, Urine (Dipstick) Negative (Negative); Leukocyte Negative (Negative); Nitrite Negative (Negative); Protein, Urine (Dipstick) Negative (Neg-Trace)
[2019-11-04 14:54] LABS: Bacteria/HPF None Seen HPF (None Seen); Mucous/LPF 1+ LPF (<2+); Squamous Epithelial 0-3 HPF (0-3)
[2019-11-04 14:58] LABS: Blood, Urine Negative (Negative)
[2019-11-04 15:11] LABS: Anion Gap 13 mmol/L (10-20); BUN (Urea Nitrogen) 16 mg/dL (9.8-20.1); Calc. Creatinine Clearance 0 mL/min (70-130); Calcium 9.3 mg/dL (7.8-10.44); Carbon Dioxide 25 mmol/L (23-31); Chloride 111 mmol/L (98-107); Estimated GFR-MDRD 56; Glucose 104 mg/dL (83-110); Potassium 3.8 mmol/L (3.5-5.1); Sodium 145 mmol/L (136-145)
[2019-11-04 16:11] LABS: Hemoglobin 13.7 g/dL (12.0-16.0); Mean Corpuscular Hemoglobin 29.1 pg (27.0-31.0); Mean Corpuscular Volume 90.9 fL (78.0-98.0); Mean Platelet Volume 8.6 fL (7.4-10.4); Platelet Count 162 thou/uL (130-400); RBC Distribution Width 12.5 % (11.5-14.5); Red Blood Cell (RBC) Count 4.71 mill/uL (4.20-5.40); White Blood Cell (WBC) Count 8.2 thou/uL (4.8-10.8)
[2019-11-04 16:18] LABS: Band 3 % (5-11); Eosinophils 6 % (0-10); Lymphocytes 14 % (21-51); MDiff Complete? YES; Monocytes 11 % (0-10); Neutrophil 66 % (42-75); Platelet Morphology Comment Appears Adequate; RBC Morphology Normal
[2019-11-05 10:40] LABS: SARS-CoV-2 MS2 Positive; SARS-CoV-2 N Gene Negative; SARS-CoV-2 S Gene Negative; SARS-CoV-2 orf1ab Negative
== END 2019-11-04 07:04 | disposition home or self-care (01) ==
LOC: LABBT 07:03
PROVIDERS: ATTEND Orthopaedic Surgery Hand Surgery
DX: Z01.818 Encounter for other preprocedural examination (principal); Z11.59 Encounter for screening for other viral diseases; M65.331 Trigger finger, right middle finger
CPT/HCPCS: 80048; 81001; 85025; 93005; U0003; 87635; 93010

== ENCOUNTER 2019-11-08 | Day surgery (SDC) | payer MEDICARE | END 2019-11-08 16:20 | disposition home or self-care (01) | PROC: 0LB70ZZ Excision of Right Hand Tendon, Open Approach (ICD-10-PCS; principal; 2019-11-08) | PROC: 0LB70ZZ Excision of Right Hand Tendon, Open Approach (ICD-10-PCS; 2019-11-08) | PROC: 0LN70ZZ Release Right Hand Tendon, Open Approach (ICD-10-PCS; 2019-11-08) | DX: M65.841 Other synovitis and tenosynovitis, right hand (principal); M65.351 Trigger finger, right little finger; M65.341 Trigger finger, right ring finger; M65.331 Trigger finger, right middle finger; M67.441 Ganglion, right hand; Z79.899 Other long term (current) drug therapy; Z88.5 Allergy status to narcotic agent; Z88.7 Allergy status to serum and vaccine; Z91.048 Other nonmedicinal substance allergy status; Z95.5 Presence of coronary angioplasty implant and graft ==

== ENCOUNTER 2020-08-28 10:49 | Outpatient (CLI) | payer MEDICARE | END 2020-08-28 10:50 | disposition home or self-care (01) | LOC: BICRAD 10:49 | PROVIDERS: ATTEND Internal Medicine Cardiovascular Disease | DX: R06.02 Shortness of breath (principal) | CPT/HCPCS: 71046 ==

== ENCOUNTER 2020-09-27 12:32 | Outpatient (CLI) | payer MEDICARE ==
[~2020-09-27 12:32] MED LIST changes: -Bacitracin Zinc Ointment 30 gm TUBE ONE; -Betamet Acet/Betamet Na Ph 30 MG/5 ML VIAL ONE; -Bupivacaine PF 0.5% 30 ML VIAL ONE; -Dexamethasone 20 MG/5 ML VIAL ONE; -Famotidine/PF 20 mg/2ml Vial ONE; -Fentanyl 100 MCG/2 ML VIAL ONE; +Iopamidol-370 76% 500 ML 1 ML ONE; -Ketorolac Tromethamine 30 MG/ML VIAL ONE; -Lidocaine 1% PF 5 ML VIAL ONE; -Metoclopramide HCl 10 MG/2 ML VIAL ONE; -Ondansetron HCl/PF 4 MG/2 ML Vial IVP PRN; -Ondansetron PF 4 MG/2 ML Vial ONE; -PROPOFOL 200 MG/20 ML VIAL ONE; -Promethazine HCl 25 MG/ML VIAL IM PRN; -Promethazine HCl 25 MG/ML VIAL SLOW IVP PRN; -Thrombin 5000 UNITS/5 ML VIAL ONE; -ePHEDrine 50 MG/ML VIAL ONE
== END 2020-09-27 12:33 | disposition home or self-care (01) ==
LOC: BICCT 12:32
PROVIDERS: ATTEND Nurse Practitioner Family
DX: I25.10 Atherosclerotic heart disease of native coronary artery without angina pectoris (principal); I77.9 Disorder of arteries and arterioles, unspecified; I65.23 Occlusion and stenosis of bilateral carotid arteries
CPT/HCPCS: 70498; 82565; Q9967

== ENCOUNTER 2020-12-28 23:12 | Inpatient (IN) | payer MEDICARE ==
[2020-12-28] MEDS ORDERED: Aspirin 325 MG TAB ONE (23:34)
[2020-12-28] MEDS ORDERED: Nitroglycerin 0.4 MG TAB 1 EACH ONE (23:41)
[2020-12-29] MEDS ORDERED: Nitroglycerin 2% Ointment 1 INCH/1 GM Packet ONE (00:05)
[2020-12-29 00:15] LABS: ALT (SGPT) 19 U/L (8-55); AST (SGOT) 23 U/L (5-34); Albumin 4.5 g/dL (3.4-4.8); Alkaline Phosphatase 123 U/L (40-110); Anion Gap 13 mmol/L (10-20); BUN (Urea Nitrogen) 15 mg/dL (9.8-20.1); Bilirubin, Total 0.7 mg/dL (0.2-1.2); Calc. Creatinine Clearance 0 mL/min (70-130); Carbon Dioxide 25 mmol/L (23-31); Chloride 107 mmol/L (98-107); Globulin 3.3 g/dL (2.4-3.5); Glucose 173 mg/dL (83-110); Protein, Total 7.8 g/dL (5.8-8.1); Sodium 141 mmol/L (136-145)
[2020-12-29 00:23] LABS: Band 4 % (5-11); Hemoglobin 14.1 g/dL (12.0-16.0); Lymphocytes 16 % (21-51); MDiff Complete? YES; Mean Corpuscular HGB CONC 33.3 g/dL (32.0-36.0); Mean Corpuscular Hemoglobin 29.3 pg (27.0-31.0); Mean Platelet Volume 8.4 fL (7.4-10.4); Monocytes 14 % (0-10); Neutrophil 65 % (42-75); Platelet Count 153 thou/uL (130-400); Platelet Morphology Comment Appears Adequate; RBC Distribution Width 12.3 % (11.5-14.5); Reactive Lymphocytes 1 % (0-10); Red Blood Cell (RBC) Count 4.79 mill/uL (4.20-5.40); White Blood Cell (WBC) Count 8.4 thou/uL (4.8-10.8)
[2020-12-29 02:59] LABS: Troponin I Less than 0.010 ng/mL (< 0.028)
[2020-12-29] MEDS ORDERED: Ondansetron PF 4 MG/2 ML Vial IVP PRN (03:04)
[2020-12-29] MEDS ORDERED: Ondansetron ODT 4 MG TAB PO PRN (03:04)
[2020-12-29] MEDS ORDERED: Nitroglycerin 0.4 MG TAB (25 Tab Bottle) SL PRN (03:07)
[2020-12-29] MEDS ORDERED: Labetalol HCl 100 MG/20 ML VIAL SLOW IVP PRN (03:12)
[2020-12-29] MEDS ORDERED: Dextrose 5 % And 0.9 % NaCl 1,000 ML IV SCH (03:30)
[2020-12-29 03:51] VITALS: BMI 26.2
[2020-12-29] MEDS: hydrALAZINE 20 MG/ML VIAL SLOW IVP PRN ×2 (04:01→23:34)
[2020-12-29 05:33] LABS: Hemoglobin A1c 5.3 % (4.0-6.0)
[2020-12-29 05:47] LABS: Anion Gap 11 mmol/L (10-20); BUN (Urea Nitrogen) 12 mg/dL (9.8-20.1); Calc. Creatinine Clearance 64 mL/min (70-130); Calcium 9.6 mg/dL (7.8-10.44); Carbon Dioxide 25 mmol/L (23-31); Chloride 109 mmol/L (98-107); Glucose 129 mg/dL (83-110); Potassium 3.7 mmol/L (3.5-5.1); Sodium 141 mmol/L (136-145)
[2020-12-29 05:54] LABS: Lymphocytes 10 % (21-51); MDiff Complete? YES; Mean Corpuscular HGB CONC 33.2 g/dL (32.0-36.0); Mean Corpuscular Hemoglobin 29.2 pg (27.0-31.0); Mean Platelet Volume 8.5 fL (7.4-10.4); Monocytes 16 % (0-10); Neutrophil 74 % (42-75); Platelet Count 145 thou/uL (130-400); Platelet Morphology Comment Appears Adequate; RBC Distribution Width 12.1 % (11.5-14.5); Red Blood Cell (RBC) Count 4.46 mill/uL (4.20-5.40); Troponin I 0.023 ng/mL (< 0.028); White Blood Cell (WBC) Count 10.9 thou/uL (4.8-10.8)
[2020-12-29] MEDS: Acetaminophen 325 MG TAB PO PRN ×2 (08:29→21:18)
[2020-12-29] MEDS ORDERED: Amlodipine 10 MG TAB PO SCH (09:00)
[2020-12-29] MEDS ORDERED: Levothyroxine Sodium 100 MCG TAB PO SCH (09:00)
[2020-12-29] MEDS ORDERED: Aspirin Chewable 81 MG TAB PO SCH (09:00)
[2020-12-29] MEDS ORDERED: Non-Formulary Item 1 EACH (Hydralazine Hcl [Hydralazine Hcl] 50 MG Tablet) PO SCH (09:07)
[2020-12-29] MEDS ORDERED: ADENOSINE 60 MG/20 ML VIAL ONE (09:07)
[2020-12-29] MEDS: hydrALAZINE 25 MG TAB PO SCH ×3 (10:12→20:03)
[2020-12-29] MEDS: Lisinopril 20 MG TAB PO SCH ×2 (10:12→20:04)
[2020-12-29] MEDS ORDERED: diphenhydrAMINE 25 MG CAP PO SCH (16:00)
[2020-12-29] MEDS ORDERED: hydrALAZINE 25 MG TAB PO SCH (17:15)
[2020-12-29] MEDS: Enoxaparin Sodium 40 MG/0.4 ML SYRINGE SC SCH (17:37)
[2020-12-29] MEDS ORDERED: Polyethylene Glycol 3350 17 GM Packet PO PRN (19:12)
[2020-12-29] MEDS: Amlodipine 5 MG TAB PO SCH (20:02)
[2020-12-29] MEDS: Atorvastatin Calcium 40 MG TAB PO SCH (20:04)
[2020-12-30] MEDS: Levothyroxine Sodium 88 MCG TAB PO SCH (08:14)
[2020-12-30] MEDS: Lisinopril 20 MG TAB PO SCH ×2 (08:15→21:02)
[2020-12-30] MEDS: Aspirin Chewable 81 MG TAB PO SCH (08:15)
[2020-12-30] MEDS: hydrALAZINE 25 MG TAB PO SCH ×3 (08:15→21:01)
[2020-12-30] MEDS: Amlodipine 5 MG TAB PO SCH ×2 (08:15→21:00)
[2020-12-30] MEDS: Enoxaparin Sodium 40 MG/0.4 ML SYRINGE SC SCH (08:16)
[2020-12-30] MEDS ORDERED: Amlodipine 5 MG TAB PO SCH (09:00)
[2020-12-30] MEDS ORDERED: Furosemide 20 MG TAB PO SCH (12:15)
[2020-12-30 19:10] LABS: Hemoglobin 14.7 g/dL (12.0-16.0); Mean Corpuscular HGB CONC 33.6 g/dL (32.0-36.0); Mean Corpuscular Hemoglobin 29.7 pg (27.0-31.0); Mean Corpuscular Volume 88.4 fL (78.0-98.0); Mean Platelet Volume 8.2 fL (7.4-10.4); Platelet Count 169 thou/uL (130-400); RBC Distribution Width 12.4 % (11.5-14.5); Red Blood Cell (RBC) Count 4.95 mill/uL (4.20-5.40); White Blood Cell (WBC) Count 10.1 thou/uL (4.8-10.8)
[2020-12-30 19:26] LABS: Eosinophils 2 % (0-10); Lymphocytes 8 % (21-51); MDiff Complete? YES; Monocytes 20 % (0-10); Neutrophil 70 % (42-75); Platelet Morphology Comment Appears Adequate; RBC Morphology Normal
[2020-12-30] MEDS: Atorvastatin Calcium 40 MG TAB PO SCH (21:02)
[2020-12-31] MEDS ORDERED: Melatonin 3 MG TAB PO PRN (00:19)
[2020-12-31] MEDS: Acetaminophen 325 MG TAB PO PRN (00:32)
[2020-12-31] MEDS: hydrALAZINE 20 MG/ML VIAL SLOW IVP PRN (04:00)
[2020-12-31] MEDS: Levothyroxine Sodium 88 MCG TAB PO SCH (05:13)
[2020-12-31 05:40] LABS: Anion Gap 9 mmol/L (10-20); BUN (Urea Nitrogen) 11 mg/dL (9.8-20.1); Calc. Creatinine Clearance 64 mL/min (70-130); Calcium 9.3 mg/dL (7.8-10.44); Carbon Dioxide 27 mmol/L (23-31); Chloride 109 mmol/L (98-107); Glucose 102 mg/dL (83-110); Potassium 3.5 mmol/L (3.5-5.1); Sodium 141 mmol/L (136-145)
[2020-12-31] MEDS ORDERED: Hydrochlorothiazide 25 MG TAB PO SCH (09:00)
[2020-12-31] MEDS ORDERED: Furosemide 20 MG TAB PO SCH ×2 (09:00)
[2020-12-31] MEDS ORDERED: NIFEdipine XL 90 MG TAB PO SCH (09:00)
[2020-12-31] MEDS ORDERED: Potassium Chloride 20 MEQ TAB PO SCH (09:00)
[2020-12-31] MEDS: hydrALAZINE 25 MG TAB PO SCH ×2 (09:24→14:40)
[2020-12-31] MEDS: Lisinopril 20 MG TAB PO SCH (09:25)
[2020-12-31] MEDS: Aspirin Chewable 81 MG TAB PO SCH (09:25)
[2020-12-31] MEDS: Enoxaparin Sodium 40 MG/0.4 ML SYRINGE SC SCH (09:25)
[2020-12-31 16:37] VITALS: BP 111/55; TEMP 97.4
== END 2020-12-31 18:12 | disposition home or self-care (01) | DRG 305 ==
LOC: ERS 23:12 → 2SE 12-29 01:37
PROVIDERS: ADMIT Student in an Organized Health Care Education/Training Program; ATTEND Internal Medicine
DX: I16.0 Hypertensive urgency (principal); I50.32 Chronic diastolic (congestive) heart failure; M19.90 Unspecified osteoarthritis, unspecified site; E78.5 Hyperlipidemia, unspecified; K21.9 Gastro-esophageal reflux disease without esophagitis; Z96.651 Presence of right artificial knee joint; R73.9 Hyperglycemia, unspecified; I11.0 Hypertensive heart disease with heart failure; F32.9 Major depressive disorder, single episode, unspecified; D72.829 Elevated white blood cell count, unspecified; I25.10 Atherosclerotic heart disease of native coronary artery without angina pectoris; E03.9 Hypothyroidism, unspecified; Z95.5 Presence of coronary angioplasty implant and graft; Z88.5 Allergy status to narcotic agent; Z88.7 Allergy status to serum and vaccine; Z79.82 Long term (current) use of aspirin; Z79.899 Other long term (current) drug therapy; Z95.1 Presence of aortocoronary bypass graft; Z90.49 Acquired absence of other specified parts of digestive tract
CPT/HCPCS: 36415; 71045; 78452; 80048; 80053; 83036; 84484; 85025; 93005; 93017; 93306; 94760; A9500; J0153; J0360; J1650

== ENCOUNTER 2021-01-18 19:30 | Outpatient (CLI) | payer MEDICARE | END 2021-01-18 19:31 | disposition home or self-care (01) | LOC: SLEEPLAB 19:30 | PROVIDERS: ATTEND Internal Medicine Pulmonary Disease | DX: G47.33 Obstructive sleep apnea (adult) (pediatric) (principal); R53.83 Other fatigue; R06.83 Snoring; I51.9 Heart disease, unspecified; I21.9 Acute myocardial infarction, unspecified; I25.10 Atherosclerotic heart disease of native coronary artery without angina pectoris; G47.31 Primary central sleep apnea; E66.9 Obesity, unspecified; Z68.25 Body mass index [BMI] 25.0-25.9, adult | CPT/HCPCS: 95811 ==

== ENCOUNTER 2021-04-08 13:11 | Emergency (ER) | payer MEDICARE ==
[2021-04-08] MEDS ORDERED: Aspirin Chewable 81 MG TAB ONE (13:42)
[2021-04-08 13:47] LABS: Mean Corpuscular Hemoglobin 29.9 pg (27.0-31.0); Mean Corpuscular Volume 87.9 fL (78.0-98.0); Mean Platelet Volume 8.3 fL (7.4-10.4); Platelet Count 180 thou/uL (130-400); RBC Distribution Width 12.4 % (11.5-14.5); Red Blood Cell (RBC) Count 5.01 mill/uL (4.20-5.40)
[2021-04-08 14:02] LABS: Eosinophils 6 % (0-10); Lymphocytes 15 % (21-51); MDiff Complete? YES; Monocytes 14 % (0-10); Neutrophil 62 % (42-75); Platelet Morphology Comment Appears Adequate; RBC Morphology Normal; Reactive Lymphocytes 2 % (0-10)
[2021-04-08 14:06] LABS: ALT (SGPT) 25 U/L (8-55); AST (SGOT) 26 U/L (5-34); Albumin 4.3 g/dL (3.4-4.8); Alkaline Phosphatase 96 U/L (40-110); Anion Gap 14 mmol/L (10-20); BUN (Urea Nitrogen) 19 mg/dL (9.8-20.1); Calc. Creatinine Clearance 0 mL/min (70-130); Calcium 9.9 mg/dL (7.8-10.44); Carbon Dioxide 24 mmol/L (23-31); Chloride 108 mmol/L (98-107); Globulin 3.4 g/dL (2.4-3.5); Glucose 95 mg/dL (83-110); Protein, Total 7.7 g/dL (5.8-8.1); Sodium 142 mmol/L (136-145)
== END 2021-04-08 14:53 | disposition home or self-care (01) ==
LOC: ERS 13:11
DX: R07.89 Other chest pain (principal); I25.10 Atherosclerotic heart disease of native coronary artery without angina pectoris; E78.5 Hyperlipidemia, unspecified; E78.00 Pure hypercholesterolemia, unspecified; I10 Essential (primary) hypertension
CPT/HCPCS: 71045; 80053; 84484; 85025; 93005

== ENCOUNTER 2021-04-16 12:04 | Inpatient (IN) | payer MEDICARE ==
[2021-04-16 13:28] LABS: Hemoglobin 13.2 g/dL (12.0-16.0); Mean Corpuscular HGB CONC 32.6 g/dL (32.0-36.0); Mean Corpuscular Hemoglobin 28.8 pg (27.0-31.0); Mean Corpuscular Volume 88.2 fL (78.0-98.0); Platelet Count 161 thou/uL (130-400); RBC Distribution Width 12.3 % (11.5-14.5); Red Blood Cell (RBC) Count 4.58 mill/uL (4.20-5.40); White Blood Cell (WBC) Count 8.5 thou/uL (4.8-10.8)
[2021-04-16 13:43] LABS: MDiff Complete? YES
[2021-04-16 13:44] LABS: Eosinophils 5 % (0-10); Lymphocytes 13 % (21-51); Monocytes 21 % (0-10); Neutrophil 56 % (42-75); Platelet Morphology Comment Appears Adequate; RBC Morphology Normal; Reactive Lymphocytes 4 % (0-10)
[2021-04-16 14:10] LABS: ALT (SGPT) 26 U/L (8-55); AST (SGOT) 28 U/L (5-34); Alkaline Phosphatase 89 U/L (40-110); Anion Gap 12 mmol/L (10-20); BUN (Urea Nitrogen) 16 mg/dL (9.8-20.1); Bilirubin, Total 0.8 mg/dL (0.2-1.2); Calc. Creatinine Clearance 0 mL/min (70-130); Calcium 9.6 mg/dL (7.8-10.44); Carbon Dioxide 25 mmol/L (23-31); Chloride 108 mmol/L (98-107); Globulin 2.8 g/dL (2.4-3.5); Glucose 97 mg/dL (83-110); Lipase 27 U/L (8-78); Potassium 4.5 mmol/L (3.5-5.1); Protein, Total 6.8 g/dL (5.8-8.1); Sodium 140 mmol/L (136-145)
[2021-04-16] MEDS ORDERED: Bisacodyl 5 MG TAB PO PRN (18:29)
[2021-04-16] MEDS ORDERED: Senokot S 8.6-50 MG TAB PO PRN (18:29)
[2021-04-16 19:37] LABS: Troponin I 0.013 ng/mL (< 0.028)
[2021-04-16] MEDS ORDERED: Furosemide 40 MG/4 ML VIAL SLOW IVP SCH (20:15)
[2021-04-16 20:18] LABS: SARS-CoV-2 NAA Rapid Test Not Detected (NotDetected)
[2021-04-16] MEDS: niCARdipine 25 MG in Sodium Chloride 0.9% 250 ML 240 ML IVPB SCH (20:28)
[2021-04-16] MEDS: hydrALAZINE 25 MG TAB PO SCH (21:46)
[2021-04-17] MEDS: niCARdipine 25 MG in Sodium Chloride 0.9% 250 ML 240 ML IVPB SCH (01:40)
[2021-04-17 04:12] LABS: Hemoglobin 14.3 g/dL (12.0-16.0); Mean Corpuscular HGB CONC 33.3 g/dL (32.0-36.0); Mean Corpuscular Hemoglobin 29.1 pg (27.0-31.0); Mean Corpuscular Volume 87.4 fL (78.0-98.0); Mean Platelet Volume 8.2 fL (7.4-10.4); Platelet Count 157 thou/uL (130-400); RBC Distribution Width 12.3 % (11.5-14.5); Red Blood Cell (RBC) Count 4.91 mill/uL (4.20-5.40); White Blood Cell (WBC) Count 9.3 thou/uL (4.8-10.8)
[2021-04-17 04:34] LABS: Anion Gap 15 mmol/L (10-20); BUN (Urea Nitrogen) 14 mg/dL (9.8-20.1); Calc. Creatinine Clearance 51 mL/min (70-130); Calcium 9.6 mg/dL (7.8-10.44); Carbon Dioxide 26 mmol/L (23-31); Chloride 106 mmol/L (98-107); Glucose 92 mg/dL (83-110); Potassium 3.7 mmol/L (3.5-5.1); Sodium 143 mmol/L (136-145)
[2021-04-17 04:45] LABS: Band 1 % (5-11); Eosinophils 6 % (0-10); Lymphocytes 20 % (21-51); MDiff Complete? YES; Monocytes 13 % (0-10); Neutrophil 59 % (42-75); Reactive Lymphocytes 1 % (0-10)
[2021-04-17 05:35] VITALS: BMI 24.5
[2021-04-17] MEDS: Levothyroxine Sodium 88 MCG TAB PO SCH (06:39)
[2021-04-17] MEDS: Enoxaparin Sodium 30 MG/0.3 ML SYRINGE SC SCH (08:00)
[2021-04-17] MEDS: hydrALAZINE 25 MG TAB PO SCH (08:00)
[2021-04-17] MEDS: Aspirin Chewable 81 MG TAB PO SCH (08:00)
[2021-04-17] MEDS: Lisinopril 20 MG TAB PO SCH (08:03)
[2021-04-17] MEDS ORDERED: hydrALAZINE 25 MG TAB PO SCH (09:00)
[2021-04-17] MEDS ORDERED: NIFEdipine XL 60 MG TAB PO SCH (17:00)
[2021-04-17] MEDS ORDERED: Melatonin 3 MG TAB PO SCH (23:59)
[2021-04-18] MEDS: Levothyroxine Sodium 88 MCG TAB PO SCH (05:42)
[2021-04-18 07:01] LABS: Hemoglobin 13.7 g/dL (12.0-16.0); Mean Corpuscular HGB CONC 33.9 g/dL (32.0-36.0); Mean Corpuscular Hemoglobin 29.7 pg (27.0-31.0); Mean Corpuscular Volume 87.6 fL (78.0-98.0); Mean Platelet Volume 8.2 fL (7.4-10.4); Platelet Count 146 thou/uL (130-400); RBC Distribution Width 12.3 % (11.5-14.5); Red Blood Cell (RBC) Count 4.61 mill/uL (4.20-5.40); White Blood Cell (WBC) Count 8.4 thou/uL (4.8-10.8)
[2021-04-18 07:11] LABS: Anion Gap 10 mmol/L (10-20); BUN (Urea Nitrogen) 17 mg/dL (9.8-20.1); Calc. Creatinine Clearance 56 mL/min (70-130); Calcium 9.5 mg/dL (7.8-10.44); Carbon Dioxide 26 mmol/L (23-31); Chloride 107 mmol/L (98-107); Glucose 98 mg/dL (83-110); Potassium 3.5 mmol/L (3.5-5.1); Sodium 139 mmol/L (136-145)
[2021-04-18] MEDS ORDERED: NIFEdipine XL 60 MG TAB PO SCH (07:33)
[2021-04-18] MEDS ORDERED: Potassium Bicarbonate/Cit Ac 20 MEQ TAB PO SCH (08:00)
[2021-04-18] MEDS: Aspirin Chewable 81 MG TAB PO SCH (08:49)
[2021-04-18] MEDS: Enoxaparin Sodium 30 MG/0.3 ML SYRINGE SC SCH (08:49)
[2021-04-18] MEDS: Lisinopril 20 MG TAB PO SCH (08:49)
[2021-04-18 09:48] LABS: Band 3 % (5-11); Eosinophils 5 % (0-10); Lymphocytes 19 % (21-51); MDiff Complete? YES; Monocytes 18 % (0-10); Neutrophil 55 % (42-75); Platelet Morphology Comment Appears Adequate; RBC Morphology Normal
[2021-04-18 11:54] VITALS: BP 93/60; TEMP 97.8
[2021-04-18] MEDS ORDERED: NIFEdipine XL 90 MG TAB PO SCH (17:00)
== END 2021-04-18 13:24 | disposition home or self-care (01) | DRG 305 ==
LOC: ERS 12:04 → 2SW 18:35 → CCU 19:38 → T4-B 04-17 10:49
PROVIDERS: ADMIT Hospitalist; ATTEND Hospitalist
DX: I16.1 Hypertensive emergency (principal); I50.32 Chronic diastolic (congestive) heart failure; Z20.822 Contact with and (suspected) exposure to COVID-19; I11.0 Hypertensive heart disease with heart failure; I25.10 Atherosclerotic heart disease of native coronary artery without angina pectoris; G47.33 Obstructive sleep apnea (adult) (pediatric); Z95.5 Presence of coronary angioplasty implant and graft; Z88.7 Allergy status to serum and vaccine; Z88.5 Allergy status to narcotic agent
CPT/HCPCS: 0240U; 36415; 71045; 80048; 80053; 83690; 83880; 84484; 85025; 93005; 93010; 93306; 93880; 94645; 94760; J1650; J1940; J7050

== ENCOUNTER 2021-04-23 10:51 | Inpatient (IN) | payer MEDICARE ==
[2021-04-23 11:36] LABS: Hemoglobin 13.6 g/dL (12.0-16.0); Mean Corpuscular HGB CONC 33.6 g/dL (32.0-36.0); Mean Corpuscular Hemoglobin 29.5 pg (27.0-31.0); Mean Corpuscular Volume 87.7 fL (78.0-98.0); Mean Platelet Volume 8.2 fL (7.4-10.4); Platelet Count 153 thou/uL (130-400); RBC Distribution Width 12.1 % (11.5-14.5); White Blood Cell (WBC) Count 10.5 thou/uL (4.8-10.8)
[2021-04-23 11:59] LABS: Band 2 % (5-11); Eosinophils 11 % (0-10); Lymphocytes 11 % (21-51); MDiff Complete? YES; Monocytes 20 % (0-10); Neutrophil 52 % (42-75); Platelet Morphology Comment Appears Adequate; Polychromasia SLIGHT = 2-3 cells (100X) (0-2/hpf); Reactive Lymphocytes 3 % (0-10)
[2021-04-23 12:02] LABS: Anion Gap 10 mmol/L (10-20); BUN (Urea Nitrogen) 23 mg/dL (9.8-20.1); Calc. Creatinine Clearance 0 mL/min (70-130); Carbon Dioxide 26 mmol/L (23-31); Chloride 108 mmol/L (98-107); Potassium 4.4 mmol/L (3.5-5.1); Sodium 140 mmol/L (136-145)
[2021-04-23 12:03] LABS: ALT (SGPT) 21 U/L (8-55); AST (SGOT) 24 U/L (5-34); Albumin 3.7 g/dL (3.4-4.8); Alkaline Phosphatase 86 U/L (40-110); Bilirubin, Total 0.8 mg/dL (0.2-1.2); Calcium 10.1 mg/dL (7.8-10.44); Globulin 3.2 g/dL (2.4-3.5); Glucose 107 mg/dL (83-110); Protein, Total 6.9 g/dL (5.8-8.1)
[2021-04-23 12:40] LABS: Free T4 (Free Thyroxine) 1.19 ng/dL (0.70-1.48)
[2021-04-23 14:22] VITALS: BMI 24.9
[2021-04-23] MEDS ORDERED: Acetaminophen 325 MG TAB PO PRN (16:32)
[2021-04-23 18:02] LABS: Troponin I 0.011 ng/mL (< 0.028)
[2021-04-23 20:21] LABS: Troponin I 0.011 ng/mL (< 0.028)
[2021-04-23] MEDS: Atorvastatin Calcium 20 MG TAB PO SCH (22:04)
[2021-04-24] MEDS: Melatonin 3 MG TAB PO PRN ×2 (00:27→20:59)
[2021-04-24] MEDS: Levothyroxine Sodium 88 MCG TAB PO SCH (05:45)
[2021-04-24 06:03] LABS: Anion Gap 11 mmol/L (10-20); BUN (Urea Nitrogen) 15 mg/dL (9.8-20.1); Calc. Creatinine Clearance 53 mL/min (70-130); Calcium 9.5 mg/dL (7.8-10.44); Carbon Dioxide 27 mmol/L (23-31); Chloride 105 mmol/L (98-107); Glucose 84 mg/dL (83-110); Potassium 4.1 mmol/L (3.5-5.1); Sodium 139 mmol/L (136-145)
[2021-04-24 06:08] LABS: Eosinophils 12 % (0-10); Hemoglobin 12.9 g/dL (12.0-16.0); Lymphocytes 13 % (21-51); MDiff Complete? YES; Mean Corpuscular HGB CONC 33.9 g/dL (32.0-36.0); Mean Corpuscular Hemoglobin 29.9 pg (27.0-31.0); Mean Corpuscular Volume 88.1 fL (78.0-98.0); Mean Platelet Volume 8.5 fL (7.4-10.4); Monocytes 26 % (0-10); Neutrophil 49 % (42-75); Platelet Count 132 thou/uL (130-400); Platelet Morphology Comment Appears Adequate; RBC Distribution Width 12.1 % (11.5-14.5); Red Blood Cell (RBC) Count 4.31 mill/uL (4.20-5.40); White Blood Cell (WBC) Count 7.6 thou/uL (4.8-10.8)
[2021-04-24] MEDS: Aspirin Chewable 81 MG TAB PO SCH (10:37)
[2021-04-24] MEDS: Lisinopril 20 MG TAB PO SCH (10:37)
[2021-04-24 13:35] LABS: SARS-CoV-2 PCR by NAA Not Detected (NotDetected)
[2021-04-24] MEDS ORDERED: Sodium Chloride 0.9% 1,000 ML IV SCH (16:15)
[2021-04-24] MEDS: NIFEdipine XL 90 MG TAB PO SCH (16:59)
[2021-04-24 19:43] LABS: Bacteria/HPF None Seen HPF (None Seen); Bilirubin Negative (Negative); Blood, Urine Trace (Negative); Clarity Clear (Clear); Glucose, Urine (Dipstick) Normal (Negative); Ketone, Urine Negative (Negative); Leukocyte 250 Leu/uL (Negative); Nitrite Negative (Negative); Protein, Urine (Dipstick) 10 mg/dL (Neg-Trace); Specific Gravity, Urine 1.022 (1.002-1.036); Squamous Epithelial 0-3 HPF (0-3); pH, Urine 5.5 (5.0-9.0)
[2021-04-24 19:44] LABS: Urine Culture Reflex Yes Yes
[2021-04-24] MEDS: Atorvastatin Calcium 20 MG TAB PO SCH (20:58)
[2021-04-24] MEDS: hydrALAZINE 20 MG/ML VIAL SLOW IVP PRN (23:42)
[2021-04-25] MEDS: Levothyroxine Sodium 88 MCG TAB PO SCH (05:31)
[2021-04-25] MEDS ORDERED: Senokot S 8.6-50 MG TAB PO PRN ×2 (07:10→07:11)
[2021-04-25] MEDS ORDERED: Bisacodyl 5 MG TAB PO PRN ×2 (07:10→07:11)
[2021-04-25] MEDS ORDERED: Cepastat Lozenges 1 LOZ PO PRN (07:11)
[2021-04-25] MEDS ORDERED: Sodium Chloride 0.65% Nasal 44 ML BOT EA NARE PRN (07:11)
[2021-04-25] MEDS ORDERED: Artificial Tear Sol 15 ML BOT EA EYE PRN (07:11)
[2021-04-25] MEDS ORDERED: Ondansetron PF 4 MG/2 ML Vial IVP PRN (07:11)
[2021-04-25] MEDS ORDERED: Calcium Carbonate 500 MG ChewTAB PO PRN (07:11)
[2021-04-25] MEDS ORDERED: Loperamide HCl 2 MG CAP PO PRN (07:11)
[2021-04-25] MEDS ORDERED: Loratadine 10 MG TAB PO PRN (07:11)
[2021-04-25] MEDS ORDERED: GUAIFENESIN SF SOLN 200 MG/10 ML UDCUP PO PRN (07:11)
[2021-04-25] MEDS ORDERED: Ondansetron ODT 4 MG TAB PO PRN (07:11)
[2021-04-25] MEDS ORDERED: Hydrocerin (Eucerin) Cream 120 gm Jar TOP PRN (07:11)
[2021-04-25] MEDS: Aspirin Chewable 81 MG TAB PO SCH (09:38)
[2021-04-25] MEDS: Lisinopril 20 MG TAB PO SCH (09:39)
[2021-04-25] MEDS: NIFEdipine XL 90 MG TAB PO SCH (17:13)
[2021-04-25] MEDS: Zolpidem Tartrate 5 MG TAB PO PRN (21:01)
[2021-04-25] MEDS: Atorvastatin Calcium 20 MG TAB PO SCH (21:01)
[2021-04-26] MEDS: Levothyroxine Sodium 88 MCG TAB PO SCH (05:17)
[2021-04-26] MEDS ORDERED: Sodium Chloride 0.9% 1,000 ML IV SCH (06:00)
[2021-04-26] MEDS ORDERED: CEFAZOLIN 1 GM VIAL ONE (06:42)
[2021-04-26] MEDS ORDERED: Gentamicin 80 MG/2 ML VIAL ONE (06:42)
[2021-04-26] MEDS ORDERED: ceFAZolin 2 GM/DEX 5% 100 ML BAG ONE (06:42)
[2021-04-26] MEDS ORDERED: Lidocaine 1% (PF) 30 ML VIAL ONE ×3 (06:42→07:39)
[2021-04-26] MEDS ORDERED: Fentanyl 100 MCG/2 ML VIAL ONE (07:09)
[2021-04-26] MEDS ORDERED: Midazolam HCl 2 mg/2 ml Vial ONE (07:09)
[2021-04-26] MEDS ORDERED: cloNIDine 0.1 MG TAB PO PRN (08:46)
[2021-04-26] MEDS: Aspirin Chewable 81 MG TAB PO SCH (09:30)
[2021-04-26] MEDS: Lisinopril 20 MG TAB PO SCH (09:30)
[2021-04-26] MEDS: Cephalexin 250 MG CAP PO SCH ×3 (09:32→20:35)
[2021-04-26] MEDS ORDERED: Iopamidol 370 76% 50 ML VIAL FS ONE (11:58)
[2021-04-26] MEDS: HYDROcodone/Acetaminophen 5/325 mg Tablet PO PRN ×2 (14:02→20:35)
[2021-04-26] MEDS: Carvedilol 6.25 MG TAB PO SCH (18:12)
[2021-04-26] MEDS: Atorvastatin Calcium 40 MG TAB PO SCH (20:35)
[2021-04-26] MEDS: Zolpidem Tartrate 5 MG TAB PO PRN (21:52)
[2021-04-27] MEDS: hydrALAZINE 20 MG/ML VIAL SLOW IVP PRN ×2 (04:41→22:42)
[2021-04-27] MEDS: HYDROcodone/Acetaminophen 5/325 mg Tablet PO PRN ×3 (05:36→20:32)
[2021-04-27] MEDS: Levothyroxine Sodium 88 MCG TAB PO SCH (05:37)
[2021-04-27] MEDS: Carvedilol 6.25 MG TAB PO SCH (08:35)
[2021-04-27] MEDS: Cephalexin 250 MG CAP PO SCH ×3 (08:36→20:32)
[2021-04-27] MEDS: Lisinopril 20 MG TAB PO SCH (08:36)
[2021-04-27] MEDS: Aspirin Chewable 81 MG TAB PO SCH (08:36)
[2021-04-27] MEDS ORDERED: Carvedilol 6.25 MG TAB PO SCH ×2 (17:00)
[2021-04-27] MEDS: Atorvastatin Calcium 40 MG TAB PO SCH (20:32)
[2021-04-27] MEDS: Icosapent Ethyl 1 GM CAPSULE PO SCH (22:33)
[2021-04-27] MEDS: Zolpidem Tartrate 5 MG TAB PO PRN (22:34)
[2021-04-28] MEDS: hydrALAZINE 20 MG/ML VIAL SLOW IVP PRN (04:35)
[2021-04-28] MEDS: Levothyroxine Sodium 88 MCG TAB PO SCH (06:09)
[2021-04-28] MEDS ORDERED: Carvedilol 6.25 MG TAB PO SCH ×2 (09:00→21:00)
[2021-04-28 09:47] VITALS: TEMP 97.8
[2021-04-28] MEDS: Lisinopril 20 MG TAB PO SCH (09:50)
[2021-04-28 09:51] VITALS: BP 134/76
[2021-04-28] MEDS: Icosapent Ethyl 1 GM CAPSULE PO SCH (09:51)
[2021-04-28] MEDS: Aspirin Chewable 81 MG TAB PO SCH (09:51)
[2021-04-28] MEDS: Cephalexin 250 MG CAP PO SCH (09:51)
== END 2021-04-28 11:45 | disposition home or self-care (01) | DRG 309 ==
LOC: ERS 10:51 → 2NO 12:45 → OBSVTOIN 04-24 15:38
PROVIDERS: ADMIT Hospitalist; ATTEND Internal Medicine
DX: I49.5 Sick sinus syndrome (principal); I50.32 Chronic diastolic (congestive) heart failure; Z20.822 Contact with and (suspected) exposure to COVID-19; I16.0 Hypertensive urgency; E03.9 Hypothyroidism, unspecified; F41.9 Anxiety disorder, unspecified; I25.10 Atherosclerotic heart disease of native coronary artery without angina pectoris; E78.5 Hyperlipidemia, unspecified; K21.9 Gastro-esophageal reflux disease without esophagitis; I11.0 Hypertensive heart disease with heart failure; G47.33 Obstructive sleep apnea (adult) (pediatric); Z96.652 Presence of left artificial knee joint; I65.23 Occlusion and stenosis of bilateral carotid arteries; F32.9 Major depressive disorder, single episode, unspecified; K59.09 Other constipation; F32.A Depression, unspecified; Z79.899 Other long term (current) drug therapy; Z95.0 Presence of cardiac pacemaker; Z79.890 Hormone replacement therapy; Z88.5 Allergy status to narcotic agent; Z88.7 Allergy status to serum and vaccine; Z91.09 Other allergy status, other than to drugs and biological substances; Z79.82 Long term (current) use of aspirin; Z90.49 Acquired absence of other specified parts of digestive tract; Z82.49 Family history of ischemic heart disease and other diseases of the circulatory system; Z82.3 Family history of stroke; Z80.6 Family history of leukemia; Z95.5 Presence of coronary angioplasty implant and graft
CPT/HCPCS: 33208; 36415; 71045; 80048; 80053; 81001; 83735; 83880; 84439; 84443; 84481; 84484; 85025; 87086; 93005; 93010; 93798; 99152; 99153; C1785; C1898; G0378; J0360; J0690; J1580; J2001; J2250; J3010; J7050; Q9967; U0003; U0005

== ENCOUNTER 2022-09-12 14:51 | Emergency (ER) | payer MEDICARE ==
[2022-09-12] MEDS ORDERED: Orphenadrine Citrate 60 MG/2 ML VIAL ONE (15:19)
[2022-09-12] MEDS ORDERED: Dexamethasone 10 MG/ML VIAL ONE (15:19)
[2022-09-12] MEDS ORDERED: HYDROcodone/Acetaminophen 5/325 mg Tablet ONE (16:15)
== END 2022-09-12 17:13 | disposition home or self-care (01) ==
LOC: ERS 14:51
DX: M54.12 Radiculopathy, cervical region (principal); I25.10 Atherosclerotic heart disease of native coronary artery without angina pectoris; M19.90 Unspecified osteoarthritis, unspecified site; E78.00 Pure hypercholesterolemia, unspecified; I10 Essential (primary) hypertension; E03.9 Hypothyroidism, unspecified; K59.09 Other constipation; Z95.5 Presence of coronary angioplasty implant and graft; Z79.899 Other long term (current) drug therapy
CPT/HCPCS: 96372; 99283; J1100; J2360

== ENCOUNTER 2022-09-23 15:31 | Outpatient (CLI) | payer MEDICARE | END 2022-09-23 15:32 | disposition home or self-care (01) | LOC: BICRAD 15:31 | PROVIDERS: ATTEND Nurse Practitioner Family | DX: M47.22 Other spondylosis with radiculopathy, cervical region (principal); M75.101 Unspecified rotator cuff tear or rupture of right shoulder, not specified as traumatic | CPT/HCPCS: 72052 ==

== ENCOUNTER 2022-10-21 13:53 | Emergency (ER) | payer MEDICARE ==
[2022-10-21] MEDS ORDERED: Bacitracin 1 PK ONE (16:12)
== END 2022-10-21 16:15 | disposition home or self-care (01) ==
LOC: ERS 13:53
DX: S80.01XA Contusion of right knee, initial encounter (principal); S63.502A Unspecified sprain of left wrist, initial encounter; S63.501A Unspecified sprain of right wrist, initial encounter; I25.10 Atherosclerotic heart disease of native coronary artery without angina pectoris; E78.00 Pure hypercholesterolemia, unspecified; I10 Essential (primary) hypertension; E03.9 Hypothyroidism, unspecified; W18.30XA Fall on same level, unspecified, initial encounter

== ENCOUNTER 2023-01-17 12:54 | Outpatient (CLI) | payer MEDICARE | END 2023-01-17 12:55 | disposition home or self-care (01) | LOC: BICMAMMO 12:54 | PROVIDERS: ATTEND Family Medicine | DX: Z12.31 Encounter for screening mammogram for malignant neoplasm of breast (principal); Z13.820 Encounter for screening for osteoporosis; M85.851 Other specified disorders of bone density and structure, right thigh; R09.89 Other specified symptoms and signs involving the circulatory and respiratory systems; Z78.0 Asymptomatic menopausal state; Z85.828 Personal history of other malignant neoplasm of skin | CPT/HCPCS: 77063; 77067; 77080; 93880 ==

== ENCOUNTER 2023-01-19 14:12 | Emergency (ER) | payer MEDICARE ==
[2023-01-19] MEDS ORDERED: Cephalexin 250 MG CAP ONE (14:53)
== END 2023-01-19 15:21 | disposition home or self-care (01) ==
LOC: ERS 14:12
DX: L03.116 Cellulitis of left lower limb (principal); I25.10 Atherosclerotic heart disease of native coronary artery without angina pectoris; E78.00 Pure hypercholesterolemia, unspecified; I10 Essential (primary) hypertension; Z79.899 Other long term (current) drug therapy
CPT/HCPCS: 99283

== ENCOUNTER 2023-01-22 21:00 | Inpatient (IN) | payer MEDICARE ==
[2023-01-22] MEDS ORDERED: fentaNYL 50 mcg/mL 1 mL Vial ONE (21:26)
[2023-01-22 21:34] LABS: Hematocrit 39.3 % (36.0-47.0); Manual Diff?? YES; Mean Corpuscular HGB CONC 33.1 g/dL (32.0-36.0); Mean Corpuscular Hemoglobin 28.5 pg (27.0-31.0); Mean Corpuscular Volume 86.2 fl (78.0-98.0); Mean Platelet Volume 10.5 fL (7.4-10.4); Platelet Count 150 10x3/uL (130-400); RBC Distribution Width 13.2 % (11.5-14.5); Red Blood Cell (RBC) Count 4.56 mill/uL (4.20-5.40); White Blood Cell (WBC) Count 14.9 10x3/uL (4.8-10.8)
[2023-01-22 21:45] LABS: Delete Auto Diff?? YES
[2023-01-22 22:00] LABS: ALT (SGPT) 45 U/L (8-55); AST (SGOT) 38 U/L (5-34); Alkaline Phosphatase 102 U/L (40-110); Anion Gap 13 mmol/L (10-20); BUN (Urea Nitrogen) 19 mg/dL (9.8-20.1); Bilirubin, Total 0.6 mg/dL (0.2-1.2); Calc. Creatinine Clearance 0 mL/min (70-130); Calcium 9.2 mg/dL (7.8-10.44); Carbon Dioxide 27 mmol/L (23-31); Chloride 105 mmol/L (98-107); Estimated GFR 61; Globulin 2.9 g/dL (2.4-3.5); Glucose 103 mg/dL (83-110); Potassium 3.8 mmol/L (3.5-5.1); Protein, Total 6.9 g/dL (5.8-8.1); Sodium 141 mmol/L (136-145)
[2023-01-22 22:05] LABS: Burr Cells SLIGHT = 2-5 cells HPF (0-1); CellaVision Operator ID lab.abc; Eosinophils 3 % (0-10); Lymphocytes 11 % (21-51); Monocytes 18 % (0-10); Neutrophil 66 % (42-75); Platelet Adequacy Comment Platelets Normal; Poikilocytosis SLIGHT = 6-15 cells HPF (0-5); Reactive Lymphocytes 3 % (0-10); Smudge Cells 12.7 %; Total Cell Count 102
[2023-01-22] MEDS ORDERED: Morphine 4 MG/ML VIAL ONE (22:34)
[2023-01-22] MEDS ORDERED: Ipratropium/Albuterol 3 ML NEB NEB PRN (22:56)
[2023-01-22] MEDS ORDERED: Ondansetron PF 4 MG/2 ML Vial IVP PRN (22:56)
[2023-01-22] MEDS ORDERED: Ketorolac Tromethamine 30 MG/ML VIAL IVP SCH (23:00)
[2023-01-22 23:52] LABS: Troponin I 0.014 ng/mL (< 0.028)
[2023-01-23] MEDS: traMADol HCl 50 MG TAB PO SCH ×4 (01:02→17:53)
[2023-01-23] MEDS: Cyclobenzaprine 10 MG TAB PO PRN (01:03)
[2023-01-23] MEDS: Acetaminophen 500 MG TAB PO SCH ×4 (01:03→17:52)
[2023-01-23] MEDS: Sodium Chloride 0.9% 1,000 ML IV SCH ×4 (01:04→17:51)
[2023-01-23] MEDS: Morphine 2 MG/ML VIAL SLOW IVP PRN ×3 (01:09→09:34)
[2023-01-23] MEDS: Ketorolac Tromethamine 30 MG/ML VIAL IVP SCH ×4 (05:28→23:59)
[2023-01-23 06:01] LABS: Hematocrit 34.5 % (36.0-47.0); Hemoglobin 11.2 g/dL (12.0-16.0); Mean Corpuscular HGB CONC 32.5 g/dL (32.0-36.0); Mean Corpuscular Hemoglobin 29.1 pg (27.0-31.0); Mean Platelet Volume 10.6 fL (7.4-10.4); Platelet Count 124 10x3/uL (130-400); RBC Distribution Width 13.2 % (11.5-14.5); Red Blood Cell (RBC) Count 3.85 mill/uL (4.20-5.40)
[2023-01-23 06:03] LABS: INR-International Normal Ratio 1.2; Manual Diff?? YES; PTT 35.7 sec (22.9-36.1); Prothrombin Time 15.7 sec (12.0-14.7)
[2023-01-23 06:04] LABS: Delete Auto Diff?? YES; Mean Corpuscular Volume 89.6 fl (78.0-98.0)
[2023-01-23 06:16] LABS: Anion Gap 10 mmol/L (10-20); BUN (Urea Nitrogen) 18 mg/dL (9.8-20.1); Calc. Creatinine Clearance 62 mL/min (70-130); Calcium 8.7 mg/dL (7.8-10.44); Carbon Dioxide 28 mmol/L (23-31); Chloride 107 mmol/L (98-107); Estimated GFR 75; Glucose 128 mg/dL (83-110); Sodium 141 mmol/L (136-145)
[2023-01-23 06:25] LABS: Burr Cells MODERATE= 6-15 cells HPF (0-1); CellaVision Operator ID lab.abc; Eosinophils 1 % (0-10); Lymphocytes 4 % (21-51); Metamyelocyte 1 % (0-0); Monocytes 15 % (0-10); Neutrophil 78 % (42-75); Platelet Adequacy Comment Platelets Decreased; Smudge Cells 3.9 %; Total Cell Count 102
[2023-01-23] MEDS ORDERED: CEFAZOLIN 2 GM in Sodium Chloride 0.9% 100 ML IVPB SCH (07:45)
[2023-01-23] MEDS ORDERED: Famotidine/PF 20 mg/2ml Vial SLOW IVP SCH (09:00)
[2023-01-23] MEDS: Gabapentin 100 MG CAP PO SCH ×3 (09:31→20:33)
[2023-01-23] MEDS ORDERED: fentaNYL 50 mcg/mL 1 mL Vial ONE (12:22)
[2023-01-23] MEDS ORDERED: SUGAMMADEX SODIUM 200 MG/2 ML VIAL ONE (13:13)
[2023-01-23] MEDS ORDERED: fentaNYL PF 100 MCG/2 ML SYRINGE ONE (13:13)
[2023-01-23] MEDS ORDERED: CEFAZOLIN 2 GM VIAL ONE (13:35)
[2023-01-23] MEDS ORDERED: Sodium Chloride 0.9% 100 ML ONE (13:35)
[2023-01-23] MEDS ORDERED: Glycopyrrolate 0.2 MG/ML 5 ML SYRINGE ONE (13:52)
[2023-01-23] MEDS ORDERED: Dexamethasone 20 MG/5 ML VIAL ONE (13:52)
[2023-01-23] MEDS ORDERED: Rocuronium Bromide 10 MG/ML (10ML VIAL) ONE (13:52)
[2023-01-23] MEDS ORDERED: NEOSTIGMINE 3 MG/3 ML SYR 3 MG/3 ML SYRINGE ONE (13:52)
[2023-01-23] MEDS ORDERED: PROPOFOL 200 MG/20 ML VIAL ONE (13:52)
[2023-01-23] MEDS ORDERED: Lidocaine 1% PF 5 ML VIAL ONE (13:52)
[2023-01-23 14:30] VITALS: BMI 26.9
[2023-01-23] MEDS ORDERED: Ondansetron HCl/PF 4 MG/2 ML Vial IVP PRN (15:09)
[2023-01-23] MEDS: CEFAZOLIN 2 GM in Sodium Chloride 0.9% 100 ML IVPB SCH ×2 (15:32→21:30)
[2023-01-23 17:17] LABS: Bacteria/HPF None Seen HPF (None Seen); Bilirubin Negative (Negative); Blood, Urine Negative (Negative); CAUTI Indications for Culture Dysuria,urgency,freq; Clarity Clear (Clear); Glucose, Urine (Dipstick) Normal (Negative); Ketone, Urine Negative (Negative); Leukocyte Negative Leu/uL (Negative); Nitrite Negative (Negative); Protein, Urine (Dipstick) 20 mg/dL (Neg-Trace); RBC/HPF 0-3 HPF (0-3); Specific Gravity, Urine 1.028 (1.002-1.036); Squamous Epithelial 0-3 HPF (0-3); WBC/HPF 0-3 HPF (0-3)
[2023-01-23 17:21] LABS: Urine Culture Reflex No No
[2023-01-24] MEDS: Acetaminophen 500 MG TAB PO SCH ×5 (06:07→22:54)
[2023-01-24] MEDS: Ketorolac Tromethamine 30 MG/ML VIAL IVP SCH ×4 (06:08→22:54)
[2023-01-24] MEDS: traMADol HCl 50 MG TAB PO SCH ×5 (06:08→22:55)
[2023-01-24] MEDS: Polyethylene Glycol 3350 17 GM Packet PO SCH (08:36)
[2023-01-24] MEDS: Senokot S 8.6-50 MG TAB PO SCH ×2 (08:36→20:54)
[2023-01-24] MEDS: Aspirin 81 mg Enteric Coated Tablet PO SCH ×2 (08:37→20:54)
[2023-01-24] MEDS: Gabapentin 100 MG CAP PO SCH ×3 (08:39→20:54)
[2023-01-24] MEDS: Famotidine/PF 20 mg/2ml Vial SLOW IVP SCH (08:39)
[2023-01-24] MEDS: traMADol HCl 50 MG TAB PO PRN (08:40)
[2023-01-25] MEDS: Acetaminophen 500 MG TAB PO SCH ×5 (00:29→23:44)
[2023-01-25] MEDS: traMADol HCl 50 MG TAB PO SCH ×5 (00:30→23:44)
[2023-01-25] MEDS: Ketorolac Tromethamine 30 MG/ML VIAL IVP SCH (00:31)
[2023-01-25 05:48] LABS: Hematocrit 22.4 % (36.0-47.0); Hemoglobin 7.3 g/dL (12.0-16.0); Mean Corpuscular HGB CONC 32.6 g/dL (32.0-36.0); RBC Distribution Width 13.8 % (11.5-14.5)
[2023-01-25 05:49] LABS: Mean Corpuscular Volume 88.9 fl (78.0-98.0); Mean Platelet Volume 11.4 fL (7.4-10.4); Platelet Count 112 10x3/uL (130-400); Red Blood Cell (RBC) Count 2.52 mill/uL (4.20-5.40); White Blood Cell (WBC) Count 31.2 10x3/uL (4.8-10.8)
[2023-01-25 06:12] LABS: Anion Gap 12 mmol/L (10-20); BUN (Urea Nitrogen) 36 mg/dL (9.8-20.1); Calc. Creatinine Clearance 42 mL/min (70-130); Calcium 8.6 mg/dL (7.8-10.44); Carbon Dioxide 23 mmol/L (23-31); Chloride 107 mmol/L (98-107); Estimated GFR 47; Glucose 131 mg/dL (83-110); Magnesium 2.1 mg/dL (1.6-2.6); Phosphorus 3.1 mg/dL (2.3-4.7); Sodium 138 mmol/L (136-145)
[2023-01-25] MEDS ORDERED: Bisacodyl 5 MG TAB PO PRN (06:13)
[2023-01-25] MEDS: Famotidine/PF 20 mg/2ml Vial SLOW IVP SCH (08:04)
[2023-01-25] MEDS: Sertraline 100 MG TAB PO SCH (08:04)
[2023-01-25] MEDS: Gabapentin 100 MG CAP PO SCH ×3 (08:04→20:12)
[2023-01-25] MEDS: Ferrous Sulfate 325 MG TAB PO SCH ×2 (08:05→17:57)
[2023-01-25] MEDS: Ascorbic Acid 500 mg Chewable Tablet PO SCH ×2 (08:05→20:11)
[2023-01-25] MEDS: Senokot S 8.6-50 MG TAB PO SCH ×2 (08:05→20:10)
[2023-01-25] MEDS: Lisinopril 20 MG TAB PO SCH (08:05)
[2023-01-25] MEDS: Polyethylene Glycol 3350 17 GM Packet PO SCH (08:06)
[2023-01-25] MEDS: Carvedilol 6.25 MG TAB PO SCH ×3 (08:06→21:32)
[2023-01-25] MEDS: Levothyroxine Sodium 88 MCG TAB PO SCH (08:06)
[2023-01-25] MEDS ORDERED: Sodium Chloride 0.9% 500 ML IV SCH (08:15)
[2023-01-25] MEDS ORDERED: Furosemide 20 MG TAB PO SCH (09:00)
[2023-01-25 10:15] LABS: Hematocrit 21.5 % (36.0-47.0); Hemoglobin 6.9 g/dL (12.0-16.0); Mean Corpuscular HGB CONC 32.1 g/dL (32.0-36.0); Mean Corpuscular Hemoglobin 29.1 pg (27.0-31.0); Mean Corpuscular Volume 90.7 fl (78.0-98.0); Mean Platelet Volume 10.7 fL (7.4-10.4); Platelet Count 107 10x3/uL (130-400); Red Blood Cell (RBC) Count 2.37 mill/uL (4.20-5.40); White Blood Cell (WBC) Count 35.8 10x3/uL (4.8-10.8)
[2023-01-25 10:18] LABS: Delete Auto Diff?? YES; Manual Diff?? YES
[2023-01-25 11:08] LABS: Eosinophils 1 % (0-10); Lymphocytes 1 % (21-51); Monocytes 20 % (0-10); Neutrophil 78 % (42-75)
[2023-01-25 11:09] LABS: Polychromasia SLIGHT = 2-3 cells (100X) (0-2/hpf)
[2023-01-25 11:10] LABS: Burr Cells SLIGHT = 2-5 cells (100X) (0-1/hpf); Platelet Adequacy Comment Platelets Decreased
[2023-01-25 14:30] LABS: Hematocrit 20.9 % (36.0-47.0); Hemoglobin 6.7 g/dL (12.0-16.0); Mean Corpuscular HGB CONC 32.1 g/dL (32.0-36.0); Mean Corpuscular Hemoglobin 29.1 pg (27.0-31.0); Mean Corpuscular Volume 90.9 fl (78.0-98.0); Mean Platelet Volume 11.1 fL (7.4-10.4); Platelet Count 112 10x3/uL (130-400); White Blood Cell (WBC) Count 35.9 10x3/uL (4.8-10.8)
[2023-01-25 14:31] LABS: Delete Auto Diff?? YES; Manual Diff?? YES
[2023-01-25 14:52] LABS: Band 7 % (5-11); Burr Cells SLIGHT = 2-5 cells HPF (0-1); CellaVision Operator ID LAB.MJL; Large Platelets 3.9 % (0-5); Lymphocytes 3 % (21-51); Monocytes 9 % (0-10); Neutrophil 81 % (42-75); Ovalocytes SLIGHT = 2-5 cells HPF (0-1); Platelet Adequacy Comment Platelets Decreased; Poikilocytosis SLIGHT = 6-15 cells HPF (0-5); Polychromasia MODERATE = 3-4 cells HPF (0-2); Total Cell Count 102
[2023-01-25] MEDS: Atorvastatin Calcium 40 MG TAB PO SCH (20:11)
[2023-01-25 22:17] LABS: Hematocrit 25.7 % (36.0-47.0); Hemoglobin 8.4 g/dL (12.0-16.0); Manual Diff?? YES; Mean Corpuscular HGB CONC 32.7 g/dL (32.0-36.0); Mean Corpuscular Hemoglobin 29.6 pg (27.0-31.0); Mean Corpuscular Volume 90.5 fl (78.0-98.0); Mean Platelet Volume 11.3 fL (7.4-10.4); RBC Distribution Width 13.7 % (11.5-14.5); Red Blood Cell (RBC) Count 2.84 mill/uL (4.20-5.40); White Blood Cell (WBC) Count 32.4 10x3/uL (4.8-10.8)
[2023-01-25 22:21] LABS: Delete Auto Diff?? YES; Platelet Count 109 10x3/uL (130-400)
[2023-01-25 22:46] LABS: Band 1 % (5-11); CellaVision Operator ID LAB.CLH1; Hypochromia SLIGHT = 6-15 cells HPF (0-5); Lymphocytes 5 % (21-51); Monocytes 9 % (0-10); Neutrophil 85 % (42-75); Nucleated RBC (Manual Ct) 1 % (0); Platelet Adequacy Comment Platelets Decreased; Polychromasia SLIGHT = 2-3 cells HPF (0-2); Total Cell Count 102
[2023-01-26] MEDS: Acetaminophen 500 MG TAB PO SCH ×4 (05:05→23:16)
[2023-01-26] MEDS: traMADol HCl 50 MG TAB PO SCH ×4 (05:05→23:16)
[2023-01-26 06:52] LABS: Hematocrit 25.1 % (36.0-47.0); Hemoglobin 8.2 g/dL (12.0-16.0); Manual Diff?? YES; Mean Corpuscular HGB CONC 32.7 g/dL (32.0-36.0); Mean Corpuscular Hemoglobin 29.4 pg (27.0-31.0); Mean Platelet Volume 11.6 fL (7.4-10.4); Platelet Count 115 10x3/uL (130-400); RBC Distribution Width 14.1 % (11.5-14.5); Red Blood Cell (RBC) Count 2.79 mill/uL (4.20-5.40); White Blood Cell (WBC) Count 29.4 10x3/uL (4.8-10.8)
[2023-01-26 06:58] LABS: Delete Auto Diff?? YES
[2023-01-26 07:21] LABS: #Basophils 0.1 thou/uL (0.0-0.2); #Eosinphils 0.2 thou/uL (0.0-0.7); #Monocytes 6.1 thou/uL (0.11-0.59); #Neutrophils 20.7 thou/uL (1.40-6.50); %Basophils 0.2 % (0.0-1.0); %Eosinophils 0.6 % (0.0-10.0); %Lymphocytes 4.4 % (21.0-51.0); %Monocytes 20.7 % (0.0-10.0); %Neutrophils 70.5 % (42.0-75.0)
[2023-01-26 07:26] LABS: Anisocytosis SLIGHT = 6-15 cells HPF (0-5); Band 1 % (5-11); Burr Cells SLIGHT = 2-5 cells HPF (0-1); CellaVision Operator ID LAB.NR; Elliptocytes SLIGHT = 2-5 cells HPF (0-1); Lymphocytes 8 % (21-51); Monocytes 13 % (0-10); Neutrophil 78 % (42-75); Nucleated RBC (Manual Ct) 1 % (0); Ovalocytes SLIGHT = 2-5 cells HPF (0-1); Platelet Adequacy Comment Platelets Decreased; Poikilocytosis SLIGHT = 6-15 cells HPF (0-5); Polychromasia SLIGHT = 2-3 cells HPF (0-2); Total Cell Count 101
[2023-01-26 07:34] LABS: Anion Gap 12 mmol/L (10-20); BUN (Urea Nitrogen) 25 mg/dL (9.8-20.1); Calc. Creatinine Clearance 67 mL/min (70-130); Calcium 8.7 mg/dL (7.8-10.44); Carbon Dioxide 22 mmol/L (23-31); Chloride 109 mmol/L (98-107); Estimated GFR 82; Glucose 97 mg/dL (83-110); Magnesium 2.1 mg/dL (1.6-2.6); Potassium 3.6 mmol/L (3.5-5.1); Sodium 139 mmol/L (136-145)
[2023-01-26] MEDS ORDERED: Furosemide 20 MG TAB PO SCH (09:00)
[2023-01-26] MEDS: Lisinopril 20 MG TAB PO SCH (09:13)
[2023-01-26] MEDS: Carvedilol 6.25 MG TAB PO SCH ×2 (09:13→20:44)
[2023-01-26] MEDS: Ascorbic Acid 500 mg Chewable Tablet PO SCH ×2 (09:13→20:43)
[2023-01-26] MEDS: Sertraline 100 MG TAB PO SCH (09:14)
[2023-01-26] MEDS: Ferrous Sulfate 325 MG TAB PO SCH ×2 (09:14→17:38)
[2023-01-26] MEDS: Aspirin 81 mg Enteric Coated Tablet PO SCH ×2 (09:14→20:43)
[2023-01-26] MEDS: Gabapentin 100 MG CAP PO SCH ×3 (09:14→20:43)
[2023-01-26] MEDS: Polyethylene Glycol 3350 17 GM Packet PO SCH (09:18)
[2023-01-26] MEDS: Senokot S 8.6-50 MG TAB PO SCH (09:18)
[2023-01-26] MEDS: Famotidine/PF 20 mg/2ml Vial SLOW IVP SCH (09:18)
[2023-01-26] MEDS: Levothyroxine Sodium 88 MCG TAB PO SCH (09:20)
[2023-01-26] MEDS: Cyclobenzaprine 10 MG TAB PO PRN (11:15)
[2023-01-26] MEDS ORDERED: Potassium Phosphate 30 MMOL in Sodium Chloride 0.9% 500 ML IVPB SCH (13:30)
[2023-01-26] MEDS: traMADol HCl 50 MG TAB PO PRN (14:58)
[2023-01-26] MEDS: Atorvastatin Calcium 40 MG TAB PO SCH (20:43)
[2023-01-27] MEDS: Acetaminophen 500 MG TAB PO SCH ×3 (05:05→17:39)
[2023-01-27] MEDS: traMADol HCl 50 MG TAB PO SCH ×3 (05:06→17:39)
[2023-01-27 06:30] LABS: Hematocrit 22.2 % (36.0-47.0); Hemoglobin 7.2 g/dL (12.0-16.0); Manual Diff?? YES; Mean Corpuscular HGB CONC 32.4 g/dL (32.0-36.0); Mean Corpuscular Hemoglobin 29.9 pg (27.0-31.0); Mean Corpuscular Volume 92.1 fl (78.0-98.0); Mean Platelet Volume 11.1 fL (7.4-10.4); Platelet Count 130 10x3/uL (130-400); RBC Distribution Width 14.6 % (11.5-14.5); Red Blood Cell (RBC) Count 2.41 mill/uL (4.20-5.40); White Blood Cell (WBC) Count 19.6 10x3/uL (4.8-10.8)
[2023-01-27 06:39] LABS: Delete Auto Diff?? YES
[2023-01-27 06:56] LABS: Anion Gap 7 mmol/L (10-20); BUN (Urea Nitrogen) 18 mg/dL (9.8-20.1); Calc. Creatinine Clearance 64 mL/min (70-130); Calcium 8.5 mg/dL (7.8-10.44); Carbon Dioxide 22 mmol/L (23-31); Chloride 113 mmol/L (98-107); Estimated GFR 78; Glucose 89 mg/dL (83-110); Phosphorus 2.7 mg/dL (2.3-4.7); Potassium 3.7 mmol/L (3.5-5.1); Sodium 138 mmol/L (136-145)
[2023-01-27 07:13] LABS: Band 1 % (5-11); CellaVision Operator ID LAB.GE; Eosinophils 1 % (0-10); Hypochromia SLIGHT = 6-15 cells HPF (0-5); Lymphocytes 4 % (21-51); Monocytes 12 % (0-10); Neutrophil 82 % (42-75); Platelet Adequacy Comment Platelets Normal; Polychromasia SLIGHT = 2-3 cells HPF (0-2); Total Cell Count 101
[2023-01-27] MEDS: Cyclobenzaprine 10 MG TAB PO PRN ×2 (07:27→22:03)
[2023-01-27] MEDS: Ascorbic Acid 500 mg Chewable Tablet PO SCH ×2 (08:07→20:32)
[2023-01-27] MEDS: Levothyroxine Sodium 88 MCG TAB PO SCH (08:07)
[2023-01-27] MEDS: Ferrous Sulfate 325 MG TAB PO SCH ×2 (08:07→17:39)
[2023-01-27] MEDS: Gabapentin 100 MG CAP PO SCH ×3 (08:08→20:32)
[2023-01-27] MEDS: Aspirin 81 mg Enteric Coated Tablet PO SCH ×2 (08:08→20:32)
[2023-01-27] MEDS: Sertraline 100 MG TAB PO SCH (08:12)
[2023-01-27] MEDS: Famotidine/PF 20 mg/2ml Vial SLOW IVP SCH (08:13)
[2023-01-27] MEDS: Carvedilol 6.25 MG TAB PO SCH ×2 (08:24→20:32)
[2023-01-27] MEDS: Lisinopril 20 MG TAB PO SCH (08:24)
[2023-01-27] MEDS: Atorvastatin Calcium 40 MG TAB PO SCH (20:32)
[2023-01-27] MEDS: traMADol HCl 50 MG TAB PO PRN (21:34)
[2023-01-28] MEDS: Acetaminophen 500 MG TAB PO SCH ×4 (00:13→17:56)
[2023-01-28] MEDS: traMADol HCl 50 MG TAB PO SCH ×4 (00:13→17:56)
[2023-01-28 06:07] LABS: Hematocrit 23.7 % (36.0-47.0); Hemoglobin 7.6 g/dL (12.0-16.0); Manual Diff?? YES; Mean Corpuscular HGB CONC 32.1 g/dL (32.0-36.0); Mean Corpuscular Volume 93.7 fl (78.0-98.0); Platelet Count 154 10x3/uL (130-400); RBC Distribution Width 15.9 % (11.5-14.5); Red Blood Cell (RBC) Count 2.53 mill/uL (4.20-5.40); White Blood Cell (WBC) Count 15.7 10x3/uL (4.8-10.8)
[2023-01-28 06:08] LABS: Delete Auto Diff?? YES
[2023-01-28 06:36] LABS: Anisocytosis SLIGHT = 6-15 cells HPF (0-5); Band 2 % (5-11); CellaVision Operator ID LAB.CLH1; Eosinophils 3 % (0-10); Hypochromia SLIGHT = 6-15 cells HPF (0-5); Lymphocytes 6 % (21-51); Macrocytosis SLIGHT = 6-15 cells HPF (0-5); Monocytes 9 % (0-10); Neutrophil 78 % (42-75); Nucleated RBC (Manual Ct) 1 % (0); Platelet Adequacy Comment Platelets Normal; Poikilocytosis SLIGHT = 6-15 cells HPF (0-5); Polychromasia SLIGHT = 2-3 cells HPF (0-2); Reactive Lymphocytes 2 % (0-10); Total Cell Count 101
[2023-01-28 06:39] LABS: Anion Gap 9 mmol/L (10-20); BUN (Urea Nitrogen) 17 mg/dL (9.8-20.1); Calc. Creatinine Clearance 71 mL/min (70-130); Calcium 8.6 mg/dL (7.8-10.44); Carbon Dioxide 22 mmol/L (23-31); Chloride 111 mmol/L (98-107); Estimated GFR 87; Glucose 81 mg/dL (83-110); Magnesium 1.9 mg/dL (1.6-2.6); Phosphorus 2.8 mg/dL (2.3-4.7); Potassium 3.6 mmol/L (3.5-5.1); Sodium 138 mmol/L (136-145)
[2023-01-28] MEDS: Ascorbic Acid 500 mg Chewable Tablet PO SCH ×2 (08:20→17:55)
[2023-01-28] MEDS: Levothyroxine Sodium 88 MCG TAB PO SCH (08:20)
[2023-01-28] MEDS: Sertraline 100 MG TAB PO SCH (08:20)
[2023-01-28] MEDS: Carvedilol 6.25 MG TAB PO SCH (08:21)
[2023-01-28] MEDS: Ferrous Sulfate 325 MG TAB PO SCH ×2 (08:21→17:55)
[2023-01-28] MEDS: Gabapentin 100 MG CAP PO SCH ×2 (08:21→14:59)
[2023-01-28] MEDS: Lisinopril 20 MG TAB PO SCH (08:21)
[2023-01-28] MEDS: Aspirin 81 mg Enteric Coated Tablet PO SCH (08:21)
[2023-01-28] MEDS ORDERED: Potassium Phosphate 30 MMOL in Sodium Chloride 0.9% 250 ML 250 ML IVPB SCH (09:00)
[2023-01-28] MEDS ORDERED: Magnesium 2 GM/50 ML(in water) 2 GM in Premix Bag 1 BAG IVPB SCH (09:00)
[2023-01-28] MEDS: Cyclobenzaprine 10 MG TAB PO PRN (15:01)
[2023-01-28 17:03] VITALS: BP 138/77; TEMP 98.2
[2023-01-29] MEDS ORDERED: Clopidogrel Bisulfate 75 MG TAB PO SCH (09:00)
== END 2023-01-28 18:38 | DRG 481 ==
LOC: ERS 21:00 → SURG A 22:51
PROVIDERS: ADMIT Specialist; ATTEND Specialist
PROC: 0QH606Z Insertion of Intramedullary Internal Fixation Device into Right Upper Femur, Open Approach (ICD-10-PCS; principal; 2023-01-23)
DX: S72.141A Displaced intertrochanteric fracture of right femur, initial encounter for closed fracture (principal); D62 Acute posthemorrhagic anemia; N17.9 Acute kidney failure, unspecified; W18.30XA Fall on same level, unspecified, initial encounter; E78.00 Pure hypercholesterolemia, unspecified; I10 Essential (primary) hypertension; E03.9 Hypothyroidism, unspecified; F32.A Depression, unspecified; R07.9 Chest pain, unspecified; M19.90 Unspecified osteoarthritis, unspecified site; D72.829 Elevated white blood cell count, unspecified; R19.7 Diarrhea, unspecified; I25.10 Atherosclerotic heart disease of native coronary artery without angina pectoris; Z96.652 Presence of left artificial knee joint; Z90.49 Acquired absence of other specified parts of digestive tract; Z95.0 Presence of cardiac pacemaker; Z88.5 Allergy status to narcotic agent; Z79.899 Other long term (current) drug therapy
CPT/HCPCS: 36415; 36416; 36430; 70450; 71045; 80048; 80053; 81001; 83735; 84100; 84484; 85025; 85027; 85610; 85730; 86850; 86900; 86901; 87040; 93005; 93970; 96374; 96375; C1713; G0390; J1100; J1885; J2270; J2272; J2405; J2704; J3010; J3475; J3490; J7030; J7050; P9016; S0028

== ENCOUNTER 2023-07-07 17:08 | Emergency (ER) | payer MEDICARE ==
[2023-07-07] MEDS ORDERED: HYDROcodone/Acetaminophen 5/325 mg Tablet ONE (17:52)
== END 2023-07-07 19:57 | disposition home or self-care (01) ==
LOC: ERS 17:08
DX: S42.031A Displaced fracture of lateral end of right clavicle, initial encounter for closed fracture (principal); I10 Essential (primary) hypertension; W22.8XXA Striking against or struck by other objects, initial encounter; Y92.090 Kitchen in other non-institutional residence as the place of occurrence of the external cause
CPT/HCPCS: 29105; 70450; 71045; 72125

== ENCOUNTER 2024-03-02 09:39 | Outpatient (CLI) | payer MEDICARE ==
[2024-03-02 11:45] LABS: Hematocrit 37.8 % (36.0-47.0); Hemoglobin 12.3 g/dL (12.0-16.0); Mean Corpuscular HGB CONC 32.5 g/dL (32.0-36.0); Mean Corpuscular Hemoglobin 28.6 pg (27.0-31.0); Mean Corpuscular Volume 87.9 fL (78.0-98.0); Mean Platelet Volume 10.6 fL (7.4-10.4); Platelet Count 127 10x3/uL (130-400); RBC Distribution Width 13.2 % (11.5-14.5)
[2024-03-02 11:51] LABS: Anion Gap 9 mmol/L (10-20); BUN (Urea Nitrogen) 18 mg/dL (9.8-20.1); Calc. Creatinine Clearance 0 mL/min (70-130); Carbon Dioxide 29 mmol/L (23-31); Chloride 108 mmol/L (98-107); Estimated GFR 52; Glucose 102 mg/dL (83-110); Potassium 3.4 mmol/L (3.5-5.1); Sodium 143 mmol/L (136-145)
== END 2024-03-02 09:40 | disposition home or self-care (01) ==
LOC: LABBT 09:39
PROVIDERS: ATTEND Orthopaedic Surgery
DX: Z01.818 Encounter for other preprocedural examination (principal); S72.91XA Unspecified fracture of right femur, initial encounter for closed fracture
CPT/HCPCS: 80048; 85027; 93005; 93010

== ENCOUNTER 2024-03-04 09:35 | Observation (INO) | payer MEDICARE ==
[2024-03-02 10:16] VITALS: BMI 26.7
[2024-03-04] MEDS ORDERED: Sodium Chloride 0.9% 100 ML ONE (13:39)
[2024-03-04] MEDS ORDERED: CEFAZOLIN 2 GM VIAL ONE (13:39)
[2024-03-04] MEDS ORDERED: fentaNYL PF 100 MCG/2 ML SYRINGE ONE (13:41)
[2024-03-04] MEDS ORDERED: Rocuronium Bromide 10 MG/ML (10ML VIAL) ONE (13:43)
[2024-03-04] MEDS ORDERED: Lidocaine 1% PF 5 ML VIAL ONE (13:44)
[2024-03-04] MEDS ORDERED: PROPOFOL 200 MG/20 ML VIAL ONE (13:55)
[2024-03-04] MEDS ORDERED: Ondansetron PF 4 MG/2 ML Vial ONE (14:19)
[2024-03-04] MEDS ORDERED: SUGAMMADEX SODIUM 200 MG/2 ML VIAL ONE (14:19)
[2024-03-04] MEDS ORDERED: PHENYLEPHRINE-NS 100 MCG/ML 10 ML SYRINGE ONE (14:19)
[2024-03-04] MEDS ORDERED: Dexamethasone 4 mg/ml Vial ONE (14:19)
[2024-03-04] MEDS ORDERED: Bupivacaine PF 0.5% 30 ML VIAL ONE (14:28)
[2024-03-04] MEDS ORDERED: ePHEDrine Sulfate 50 MG/10 ML VIAL ONE (14:28)
[2024-03-04] MEDS ORDERED: Vasopressin 20 UNITS/ML VIAL ONE (14:31)
[2024-03-04] MEDS ORDERED: Senokot S 8.6-50 MG TAB PO PRN (15:00)
[2024-03-04] MEDS ORDERED: Communication Order-Pharmacy FS SCH (15:00)
[2024-03-04] MEDS: HYDROcodone/Acetaminophen 10/325 mg Tablet PO PRN (16:43)
[2024-03-04] MEDS: Atorvastatin Calcium 20 MG TAB PO SCH (20:38)
[2024-03-04] MEDS: CEFAZOLIN 2 GM in Sodium Chloride 0.9% 100 ML IVPB SCH (21:44)
[2024-03-05] MEDS: Levothyroxine Sodium 88 MCG TAB PO SCH (05:40)
[2024-03-05 05:43] LABS: #Basophils Less than 0.03 10x3/uL (0.0-0.2); #Eosinphils Less than 0.03 10x3/uL (0.0-0.7); %Basophils 0.2 % (0.0-1.0); %Lymphocytes 6.8 % (21.0-51.0); %Neutrophils 74.9 % (42.0-75.0); Hematocrit 31.6 % (36.0-47.0); Hemoglobin 10.4 g/dL (12.0-16.0); Mean Corpuscular HGB CONC 32.9 g/dL (32.0-36.0); Mean Corpuscular Hemoglobin 28.9 pg (27.0-31.0); Mean Corpuscular Volume 87.8 fL (78.0-98.0); Mean Platelet Volume 10.9 fL (7.4-10.4); Platelet Count 109 10x3/uL (130-400); RBC Distribution Width 12.9 % (11.5-14.5)
[2024-03-05] MEDS: Carvedilol 25 MG TAB PO SCH (10:12)
[2024-03-05] MEDS: Ezetimibe 10 MG TAB PO SCH (10:12)
[2024-03-05] MEDS: Sertraline 100 MG TAB PO SCH (10:13)
[2024-03-05] MEDS: Isosorbide Mononitrate 60 MG ER.TAB PO SCH (10:13)
[2024-03-05] MEDS: Lisinopril 20 MG TAB PO SCH (10:13)
[2024-03-05] MEDS: Pantoprazole DR 40 MG TAB PO SCH (10:13)
[2024-03-05] MEDS: Aspirin 81 mg Enteric Coated Tablet PO SCH (10:13)
[2024-03-05] MEDS: Furosemide 20 MG TAB PO SCH (10:14)
[2024-03-05 13:02] VITALS: BP 107/56; TEMP 98.6
== END 2024-03-05 16:55 | disposition home or self-care (01) ==
LOC: EDSTATUS 09:39 → INTOOBSV 11:36 → SURG A 11:36 → SURG B 16:14
PROVIDERS: ADMIT Orthopaedic Surgery; ATTEND Orthopaedic Surgery
PROC: 7W06X9Z Osteopathic Treatment of Lower Extremities using Other Method (ICD-10-PCS; principal; 2024-03-04)
DX: S42.141A Displaced fracture of glenoid cavity of scapula, right shoulder, initial encounter for closed fracture (principal); E78.5 Hyperlipidemia, unspecified; E03.9 Hypothyroidism, unspecified; F32.A Depression, unspecified; I10 Essential (primary) hypertension; I25.10 Atherosclerotic heart disease of native coronary artery without angina pectoris; Z96.641 Presence of right artificial hip joint; Z98.890 Other specified postprocedural states; Z90.49 Acquired absence of other specified parts of digestive tract; Z88.8 Allergy status to other drugs, medicaments and biological substances; Z87.891 Personal history of nicotine dependence; Z79.899 Other long term (current) drug therapy; Z88.5 Allergy status to narcotic agent; X58.XXXA Exposure to other specified factors, initial encounter
CPT/HCPCS: 27245; 73501; 85025; 97110; 97116; C1713; J0665; J1100; J2405; J2704; 36415